=== PATIENT | female | born 1935 | race Caucasian/White ===

== ENCOUNTER → 2016-10-06 | Outpatient (REF) | payer MEDICARE, OTHER ==
[2016-10-06 15:54] LABS: ALBUMIN 3.9 GM/DL (3.2-5.2); ALBUMIN/GLOBULIN RATIO 1.56 (1.00-1.93); ALKALINE PHOSPHATASE 53 U/L (45-117); ALT/SGPT 20 U/L (12-78); ANION GAP 7 MEQ/L (8-16); AST/SGOT 19 U/L (15-37); BLOOD UREA NITROGEN 21 MG/DL (7-18); CALCIUM LEVEL 8.8 MG/DL (8.8-10.2); CARBON DIOXIDE LEVEL 32 MEQ/L (21-32); CHLORIDE LEVEL 104 MEQ/L (98-107); CHOLESTEROL LEVEL 224 MG/DL (<200); GLOMERULAR FILTRATION RATE > 60.0 (>32); GLUCOSE, FASTING 143 MG/DL (83-110); POTASSIUM SERUM 4.1 MEQ/L (3.5-5.1); SODIUM LEVEL 143 MEQ/L (136-145); TOTAL PROTEIN 6.4 GM/DL (6.4-8.2); TRIGLYCERIDES LEVEL 170 MG/DL (<150)
== END ==
LOC: M SFHCLACO 08:03
PROVIDERS: ATTEND Physician Assistant
DX: I10 Essential (primary) hypertension (principal); E78.2 Mixed hyperlipidemia; E03.9 Hypothyroidism, unspecified; E55.9 Vitamin D deficiency, unspecified; E11.9 Type 2 diabetes mellitus without complications

== ENCOUNTER → 2017-04-06 | Outpatient (REF) | payer MEDICARE, OTHER ==
[2017-04-06 15:18] LABS: ALBUMIN 3.7 GM/DL (3.2-5.2); ALBUMIN/GLOBULIN RATIO 1.48 (1.00-1.93); ALKALINE PHOSPHATASE 54 U/L (45-117); ALT/SGPT 16 U/L (12-78); ANION GAP 8 MEQ/L (8-16); AST/SGOT 19 U/L (7-37); BILIRUBIN,TOTAL 0.8 MG/DL (0.2-1.0); BLOOD UREA NITROGEN 22 MG/DL (7-18); CALCIUM LEVEL 8.5 MG/DL (8.8-10.2); CARBON DIOXIDE LEVEL 32 MEQ/L (21-32); CHLORIDE LEVEL 103 MEQ/L (98-107); CHOLESTEROL LEVEL 204 MG/DL (<200); CREATININE FOR GFR 0.94 MG/DL (0.55-1.02); GLOMERULAR FILTRATION RATE > 60.0 (>32); GLUCOSE, FASTING 210 MG/DL (83-110); POTASSIUM SERUM 4.1 MEQ/L (3.5-5.1); SODIUM LEVEL 143 MEQ/L (136-145); TOTAL PROTEIN 6.2 GM/DL (6.4-8.2); TRIGLYCERIDES LEVEL 122 MG/DL (<150)
== END ==
LOC: M SFHCLACO 09:12
PROVIDERS: ATTEND Physician Assistant
DX: I10 Essential (primary) hypertension (principal); E78.2 Mixed hyperlipidemia; E11.42 Type 2 diabetes mellitus with diabetic polyneuropathy; E03.9 Hypothyroidism, unspecified; E55.9 Vitamin D deficiency, unspecified

== ENCOUNTER 2018-12-27 16:55 | Inpatient (IN) | payer MEDICARE, OTHER ==
[~2018-12-27] VITALS: Ht 160 cm; Wt 67.0 kg
[2018-12-27] MEDS ORDERED: RAMI1CAP22 PO (17:18)
[2018-12-27] MEDS ORDERED: CYAN100050 PO (17:18)
[2018-12-27] MEDS ORDERED: VITA-157 PO (17:18)
[2018-12-27] MEDS ORDERED: VITA500045 PO (17:18)
[2018-12-27] MEDS ORDERED: SYNT25TA PO (17:18)
[2018-12-27] MEDS ORDERED: FURO40TA2 PO (17:18)
[2018-12-27] MEDS ORDERED: POTA1TAB23 PO (17:18)
[2018-12-27] MEDS ORDERED: FOLI800C PO (17:18)
[2018-12-27] MEDS ORDERED: PANT40TA3 PO (17:18)
[2018-12-27] MEDS ORDERED: BISO5TAB9 PO (17:18)
[2018-12-27] MEDS ORDERED: MAGN400C PO (17:18)
[2018-12-27] MEDS ORDERED: hydrALAZINE INJ 20 MG/ML VIAL IV ONE (17:45)
--- NOTE | 2018-12-27 17:48 | REPVR ---
EXAM: CT Head Without Contrast EXAM DATE/TIME: 12/27/2018 5:30 PM CLINICAL HISTORY: 83 years old, female; Weakness, extremity; Right; Additional info: CVA - nursing interventions must not delay CT TECHNIQUE: Imaging protocol: Computed tomography of the head without contrast. Radiation optimization: All CT scans at this facility use at least one of these dose optimization techniques: automated exposure control; mA and/or kV adjustment per patient size (includes targeted exams where dose is matched to clinical indication); or iterative reconstruction. Other technique: STROKE PROTOCOL was implemented. COMPARISON: No relevant prior studies available. FINDINGS: Brain: There is age-related volume loss. There is white matter lucency indicating chronic microvascular disease. There are small old basal ganglia lacunar infarcts. No acute infarct is identified. There is no hemorrhage or extra-axial collection. Ventricles: Ventricular size is proportionate to the prominence of the sulci. Bones/joints: Unremarkable. No acute fracture. Sinuses: There is mucosal thickening and an air-fluid level in the sphenoid sinus. Mastoid air cells: There is a small amount of fluid in the left mastoid air cells. Soft tissues: Unremarkable. IMPRESSION: 1. There is chronic microvascular disease with small old basal ganglia lacunar infarcts. 2. No acute intracranial lesion or injury. ASSESSMENT: ASPECTS ([place] Stroke Program Early CT Score) is 10 Electronically signed by: Juanpablo Cisneros On 12/27/2018 17:48:18 PM
[2018-12-27] MEDS ORDERED: FOLI0.8T PO (18:38)
[2018-12-27] MEDS ORDERED: VITA1CAP21 PO (18:38)
[2018-12-27] MEDS ORDERED: ASCO500T PO (18:38)
[2018-12-27] MEDS ORDERED: MAGN400T2 PO (18:38)
[2018-12-27] MEDS ORDERED: IBUP200C25 PO (18:41)
[2018-12-27 19:01] LABS: BASO # 0.1 10^3/uL (0.0-0.2); BASO % 0.7 % (0.0-1.0); EOS # 0.1 10^3/uL (0.0-0.5); EOS % 0.5 % (0.0-3.0); HEMATOCRIT 38.9 % (36.0-47.0); HEMOGLOBIN 13.3 g/dl (12.0-15.5); LYMPH # 2.1 10^3/uL (1.5-5.0); LYMPH % 22.9 % (24.0-44.0); MEAN CORPUSCULAR HEMOGLOBIN 31.2 pg (27.0-33.0); MEAN CORPUSCULAR HGB CONC 34.2 g/dl (32.0-36.5); MEAN CORPUSCULAR VOLUME 91.3 fl (80.0-96.0); MONO # 0.5 10^3/uL (0.0-0.8); MONO % 5.6 % (0.0-5.0); NEUTROPHILS # 6.5 10^3/uL (1.5-8.5); NEUTROPHILS % 69.3 % (36.0-66.0); PLATELET COUNT, AUTOMATED 216 10^3/uL (150-450); RED BLOOD COUNT 4.26 10^6/uL (4.00-5.40); WHITE BLOOD COUNT 9.3 10^3/uL (4.0-10.0)
[2018-12-27 19:15] LABS: INR 1.1; PROTHROMBIN TIME 13.9 SECONDS (11.8-14.0)
[2018-12-27 19:16] LABS: PARTIAL THROMBOPLASTIN TIME 28.3 SECONDS (25.0-38.4)
[2018-12-27 19:22] LABS: BLOOD UREA NITROGEN 14 MG/DL (7-18); CALCIUM LEVEL 9.2 MG/DL (8.8-10.2); CARBON DIOXIDE LEVEL 29 MEQ/L (21-32); CHLORIDE LEVEL 104 MEQ/L (98-107); CREATININE FOR GFR 0.93 MG/DL (0.55-1.30); GLOMERULAR FILTRATION RATE > 60.0 (>32); GLUCOSE, FASTING 135 MG/DL (70-100); POTASSIUM SERUM 4.1 MEQ/L (3.5-5.1); SODIUM LEVEL 139 MEQ/L (136-145)
[2018-12-27] MEDS ORDERED: ASPIRIN 325 MG TAB PO ONE (19:30)
--- NOTE | 2018-12-27 19:34 | ECGEPIP ---
[facility] - ED Test Date: 2018-12-27 Pat Name: MEET ADKINS Department: Room: - Gender: Female Senior Contract Specialist: jenny : 1935 Requested By: Tosha Gallegos Order Number: [id number] Reading MD: Tung Barahona Measurements Intervals [place] Rate: 73 P: 50 VT: 162 QRS: 51 QRSD: 88 T: 56 QT: 425 QTc: 471 Interpretive Statements SINUS RHYTHM MINIMAL ST DEPRESSION NO PRIORS FOR COMPARISON Electronically Signed on 12-27-2018 19:34:04 EDT by Tung Barahona
[2018-12-27] MEDS: HumaLOG INSULIN (NovoLOG) PER UNIT SC SCH (21:00)
--- NOTE | 2018-12-27 21:27 | REPVR ---
EXAM: MR Head Without Contrast EXAM DATE/TIME: 12/27/2018 9:20 PM CLINICAL HISTORY: 83 years old, female; Weakness, extremity; Right; Additional info: Right weak TECHNIQUE: Imaging protocol: MR of the head without contrast. COMPARISON: CT Head without contrast 12/27/2018 5:32 PM FINDINGS: Brain: There is age related volume loss. There is hyperintense signal within the periventricular white matter with multiple additional hyperintense foci scattered throughout the white matter. This is consistent with chronic microvascular disease. There are old lacunar infarcts present in the white matter, basal ganglia and left thalamus. DWI images demonstrate no evidence of acute infarct. Gradient echo images demonstrate no evidence of hemorrhage. There is no extra-axial collection. There is no mass. There are no abnormal flow voids. Ventricles: There is no hydrocephalus. Bones/joints: Unremarkable. Soft tissues: Normal. Sinuses: Normal as visualized. No acute sinusitis. Mastoid air cells: Normal as visualized. No mastoid effusion. Orbits: Unremarkable. IMPRESSION: 1. There is chronic microvascular disease with a few small old lacunar infarcts. 2. No acute intracranial lesion or injury. Electronically signed by: Juanpablo Cisneros On 12/27/2018 21:26:49 PM
--- NOTE | 2018-12-27 21:33 | REPVR ---
EXAM: MR Angiogram Head Without Contrast, Arteries EXAM DATE/TIME: 12/27/2018 9:20 PM CLINICAL HISTORY: 83 years old, female; Weakness; Additional info: Right weak TECHNIQUE: Imaging protocol: MR angiogram head without contrast. Exam focused on the arteries. 3D rendering: MIP reconstructed images were created and reviewed. COMPARISON: CT Head without contrast 12/27/2018 5:32 PM FINDINGS: Right internal carotid artery: Unremarkable. Intracranial segment is patent with no significant stenosis. No aneurysm. Right anterior cerebral artery: The A1 segment of the right anterior cerebral artery is hypoplastic. The vessels slightly dilates at the A1 A-2 junction with an infundibular appearance. No definite aneurysm. No stenosis.. Right middle cerebral artery: There is a short segment severe stenosis of the distal M1 segment of the right middle cerebral artery. Right posterior cerebral artery: There is a severe short segment stenosis of the P2 segment of the right posterior cerebral artery. No occlusion. No aneurysm. Right vertebral artery: Unremarkable. No occlusion or significant stenosis. No aneurysm. Left internal carotid artery: Unremarkable. Intracranial segment is patent with no significant stenosis. No aneurysm. Left anterior cerebral artery: The A1 segment of the left anterior cerebral artery is dominant. No stenosis. No aneurysm. Left middle cerebral artery: Unremarkable. No occlusion or significant stenosis. No aneurysm. Left posterior cerebral artery: Unremarkable. No occlusion or significant stenosis. No aneurysm. Left vertebral artery: Unremarkable. No occlusion or significant stenosis. No aneurysm. Basilar artery: Unremarkable. No occlusion or significant stenosis. No aneurysm. IMPRESSION: 1. 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 2. Severe short segment stenosis of the P2 segment of the right posterior cerebral artery. 3. No large vessel occlusion. Electronically signed by: Juanpablo Cisneros On 12/27/2018 21:33:19 PM
--- NOTE | 2018-12-27 22:05 | HPEPDOC ---
[facility] Medical History & Physical Date of Admission Dec 27, 2018 Date of Service: Dec 27, 2018 Primary Care Physician: Kena Chowdhury PA-C, LAC History and Physical TIME OF SERVICE:940PM CHIEF COMPLAINT: Disorientation and dizziness HISTORY OF PRESENT ILLNESS: This is an 83 old female who presents with complaints of lapsing and remitting disorientation, dizziness, and right leg heaviness. As a result of the leg heaviness she had a fall around 3:30 PM. She denies hitting her head is result of the fall or losing consciousness. She had difficulty getting up, but caught up on her own and walk to the house. Prior to making it inside to call her children she has to sit down and rest. Associated symptoms include slurred speech. She denies having blurry vision. She had a similar episode about 3 years ago which resolved on its own; she did not seek medical treatment after this episode. In the ED, EKG showed normal sinus rhythm, CT of the head showed an old stroke but no acute process; she was diagnosed with a TIA and received aspirin & hydralazine. She was out of the window for TPA. 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 Per chart review, unknown subtype of Congestive heart failure. Restrictive lung disease Osteoporosis. GERD Abdominal aneurysm "Leaky valves" Status post cholecystectomy. Status post cataract surgery SOCIAL HISTORY: Nonsmoker FAMILY HISTORY: Coronary artery disease Bone cancer ALLERGIES: Please see below. HOME MEDICATIONS: Please see below. PHYSICAL EXAMINATION: VITAL SIGNS: Please see below. GENERAL APPEARANCE: Well-nourished, well-developed, not in apparent distress HEENT: Normocephalic, atraumatic, mucous members moist and pink CARDIOVASCULAR: Regular rate and rhythm. No murmurs, rubs or gallops LUNGS: Clear to auscultation bilaterally on room air ABDOMEN: Positive bowel sounds, soft and nontender on palpation MUSCULOSKELETAL: Range of motion intact in all 4 extremities. Strength 5 out of 5 in all extremities except for right lower extremity where the strength is 4 out of 5 NEUROLOGICAL: Cranial nerves II-12 are intact, speech is not dysarthric PSYCHIATRIC: Alert and oriented to person base and time, able to understand and follow commands LABORATORY DATA: See below. IMAGING: CT of the head "IMPRESSION: 1. There is chronic microvascular disease with small old basal ganglia lacunar infarcts. 2. No acute intracranial lesion or injury " MRI of the brain "IMPRESSION: 1. There is chronic microvascular disease with a few small old lacunar infarcts. 2. No acute intracranial lesion or injury. " MRA of the brain "IMPRESSION: 1. 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 2. Severe short segment stenosis of the P2 segment of the right posterior cerebral artery. 3. No large vessel occlusion. " MICROBIOLOGY: Please see below. ASSESSMENT: Ms. Witt is an 83-year-old female with a past medical history of chronic hypertension, prediabetes, hypothyroidism, dyslipidemia, old basal ganglia lacunar infarct, history of PUD, unknown type of CHF, restrictive lung disease, osteoporosis, and GERD who is admitted for management of TIA PLAN: 1. TIA Primary symptom are relapsing remitting right lower extremity weakness, and dizziness. CT, MRI, and MRA of the head were negative for an acute stroke or large vessel occlusion. There was an old basal ganglia infarct present, but the patient was not aware of. Of note, she did report having similar episode in the past but did not follow-up with her physician for workup. She received aspirin, but was out of the TPA window -ABCD2 Score for risk of CVA after TIA = 7 points = high risk = hospital admission recommended Plan: admit to PCU / telemetry /fall precautions / f/u lipid panel for ACVD risk score, TSH, f/u Echo / PT/OT consult / c/w ASA, statin /neurology consult / the day time team can follow-up with the neurologist to discuss if the patient is a candidate for ASA + Plavix for 21 days followed by Plavix mono-therapy for 90 days to reduce the risk of subsequent stroke because her ABCD2 Score was greater than 4 2. Chronic hypertension Plan: Permissive hypertension for 24 hours with target blood pressure less than 220/120 / hold home BP meds until 3PM tomorrow / labetalol 5mg IV PRN if blood pressure is greater than 220/120 3. Prediabetes Plan: DM diet / Follow-up Accu-Cheks, A1c / hypoglycemia protocol / post stroke target glycemic range between 140 and 180 4. Hypothyroidism Plan: Continue home meds 5.Dyslipidemia Plan: Continue home meds 6. History of peptic ulcer disease./ GERD Plan: Continue home meds DVT prophylaxis with heparin. Disposition pending clinical course LATE ENTRY per d/w will order MRI of the lumbar spine. Vital Signs Vital Signs Date Time Temp Pulse Resp B/P (MAP) Pulse Ox O2 Delivery O2 Flow Rate FiO2 12/27/18 21:48 82 96 12/27/18 21:25 147/65 (92) 12/27/18 18:33 16 Room Air 12/27/18 16:56 98.0 Laboratory Data Labs 24H Laboratory Tests 2 12/27/18 18:50: Immature Granulocyte % (Auto) 1.0, White Blood Count 9.3, Red Blood Count 4.26, Hemoglobin 13.3, Hematocrit 38.9, Mean Corpuscular Volume 91.3, Mean Corpuscular Hemoglobin 31.2, Mean Corpuscular Hemoglobin Concent 34.2, Red Cell Distribution Width 13.2, Platelet Count 216, Neutrophils (%) (Auto) 69.3H, Lymphocytes (%) (Auto) 22.9L, Monocytes (%) (Auto) 5.6H, Eosinophils (%) (Auto) 0.5, Basophils (%) (Auto) 0.7, Neutrophils # (Auto) 6.5, Lymphocytes # (Auto) 2.1, Monocytes # (Auto) 0.5, Eosinophils # (Auto) 0.1, Basophils # (Auto) 0.1, Nucleated Red Blood Cells % (auto) 0.0, Prothrombin Time 13.9, Prothromb Time International Ratio 1.10, Activated Partial Thromboplast Time 28.3, Anion Gap 6L, Glomerular Filtration Rate > 60.0, Blood Urea Nitrogen 14, Creatinine 0.93, Sodium Level 139, Potassium Level 4.1, Chloride Level 104, Carbon Dioxide Level 29, Calcium Level 9.2 CBC/BMP Laboratory Tests 12/27/18 18:50 Red Blood Count 4.26, Mean Corpuscular Volume 91.3, Mean Corpuscular Hemoglobin 31.2, Mean Corpuscular Hemoglobin Concent 34.2, Red Cell Distribution Width 13.2, Neutrophils (%) (Auto) 69.3 H, Lymphocytes (%) (Auto) 22.9 L, Monocytes (%) (Auto) 5.6 H, Eosinophils (%) (Auto) 0.5, Basophils (%) (Auto) 0.7, Neutrophils # (Auto) 6.5, Lymphocytes # (Auto) 2.1, Monocytes # (Auto) 0.5, Eosinophils # (Auto) 0.1, Basophils # (Auto) 0.1, Calcium Level 9.2 Home Medications Scheduled Bisoprolol Fumarate (Bisoprolol Fumarate) 5 Mg Tablet, 5 MG PO DAILY Cyanocobalamin (Vitamin B-12) (Vitamin B-12) 1,000 Mcg Tablet, 1,000 MCG PO DAILY @ NOON Ergocalciferol (Vitamin D2) (Vitamin D2) 50,000 Unit Capsule, 50,000 UNITS PO 1XWK WEDNESDAY Furosemide (Furosemide) 40 Mg Tablet, 40 MG PO DAILY Levothyroxine Sodium (Synthroid) 25 Mcg Tablet, 25 MCG PO DAILY Magnesium Oxide (Magnesium Oxide) 400 Mg Tablet, 400 MG PO DAILY Potassium Chloride (Potassium Chloride) 10 Meq Tablet.er, 10 MEQ PO QPM Ramipril (Ramipril) 2.5 Mg Capsule, 2.5 MG PO DAILY Vitamin A Palmitate (Vitamin A) 10,000 Unit Capsule, 10,000 UNIT PO DAILY Vitamin E (Dl,Tocopheryl Acet) (Vitamin E) 400 Unit Capsule, 400 UNIT PO DAILY Scheduled PRN Ibuprofen (Ibuprofen) 200 Mg Capsule, 400 MG PO Q8H PRN for PAIN Pantoprazole Sodium (Pantoprazole Sodium) 40 Mg Tablet.dr, 40 MG PO DAILY PRN for HEARTBURN Allergies Coded Allergies: No Known Allergies (Unverified , 12/27/18) A-FIB/CHADSVASC A-FIB History Current/History of A-Fib/PAF?: No Current PO Anticoag Therapy: No CHASIDY NAIK MD Dec 27, 2018 22:05
[2018-12-27] MEDS ORDERED: LABETALOL HCL 100 MG/20 ML VIAL IV PRN (23:30)
[2018-12-27] MEDS ORDERED: GLUCOSE 4 GM CHEW TABLET PO PRN (23:30)
[2018-12-27] MEDS ORDERED: PANTOPRAZOLE 40MG TAB (PROTONIX) PO PRN (23:30)
[2018-12-27] MEDS ORDERED: DEXTROSE 50% 50 ML SYRINGE IV PRN (23:30)
[2018-12-27] MEDS ORDERED: GLUCAGON FOR INJ 1 MG VIAL (J1610) SC PRN (23:30)
[2018-12-28 00:40] VITALS: BP 140/72
[2018-12-28 00:44] LABS: HEMOGLOBIN A1c 7.2 %
[2018-12-28] MEDS: POTASSIUM CHLORIDE 10 MEQ SR TABLET PO SCH ×2 (01:04→17:18)
[2018-12-28] MEDS ORDERED: SLF 3 ML SYR IV PRN (02:15)
[2018-12-28 04:00] VITALS: BP 132/72
[2018-12-28] MEDS: LEVOTHYROXINE 25MCG TABLET (0.025MG) PO SCH (05:21)
[2018-12-28] MEDS: HEPARIN SOD (PORCINE) 5000 UNITS/ML VIAL SC SCH ×3 (05:21→17:17)
[2018-12-28] MEDS: SLF 3 ML SYR IV SCH ×3 (05:22→21:14)
[2018-12-28 05:37] LABS: HEMATOCRIT 34.6 % (36.0-47.0); HEMOGLOBIN 11.7 g/dl (12.0-15.5); MEAN CORPUSCULAR HGB CONC 33.8 g/dl (32.0-36.5); MEAN CORPUSCULAR VOLUME 88.7 fl (80.0-96.0); PLATELET COUNT, AUTOMATED 211 10^3/uL (150-450)
[2018-12-28 06:10] LABS: BLOOD UREA NITROGEN 13 MG/DL (7-18); CALCIUM LEVEL 8.5 MG/DL (8.8-10.2); CARBON DIOXIDE LEVEL 28 MEQ/L (21-32); CHLORIDE LEVEL 105 MEQ/L (98-107); CHOLESTEROL LEVEL 167 MG/DL (<200); CHOLESTEROL RISK RATIO 4.394 (<5); CREATININE FOR GFR 0.79 MG/DL (0.55-1.30); GLOMERULAR FILTRATION RATE > 60.0 (>32); GLUCOSE, FASTING 148 MG/DL (70-100); HDL CHOLESTEROL 38 MG/DL (>40); LDL CHOLESTEROL 105 MG/DL (<100); NON-HDL-C 129 MG/DL; POTASSIUM SERUM 3.5 MEQ/L (3.5-5.1); SODIUM LEVEL 140 MEQ/L (136-145); TRIGLYCERIDES LEVEL 121 MG/DL (<150)
[2018-12-28] MEDS: HumaLOG INSULIN (NovoLOG) PER UNIT SC SCH ×4 (07:30→20:34)
[2018-12-28 08:00] VITALS: BP 150/62
[2018-12-28] MEDS: ASPIRIN 81 MG ENTERIC TAB PO SCH (08:12)
[2018-12-28] MEDS: ATORVASTATIN 20 MG TAB PO SCH (08:12)
[2018-12-28] MEDS: MAGNESIUM OXIDE 400 MG TAB (MAG-OX) PO SCH (08:12)
--- NOTE | 2018-12-28 11:01 | REP ---
MRI of the lumbar spine without contrast Indication: Right leg weakness. Comparison: CT abdomen pelvis of 06/02/2012. Technique: MRI of the lumbar spine was performed utilizing sagittal STIR, T1 and T2, and axial T1 and T2 weighted imaging. No intravenous contrast was administered. Findings: There is exaggeration of lumbar lordosis. There is compression deformity of the inferior endplate of L1 with greater than 50% loss of height anteriorly and 3 mm retrolisthesis of L1 on L2. There is mild L1 inferior endplate edema and mild T1 and T2 hypointensity suggestive of L1 inferior endplate sclerosis. There is superior endplate deformities along L4 and L5 which may be related to Schmorl's nodes. There is a 6 mm T1 and T2 hypointensity along the superior endplate of L1 and a sub 5 mm hypointensity within the L2 vertebral body which are incompletely evaluated and incompletely characterized. Vertebral body heights and intervertebral disc heights are maintained. The visualized spinal cord is normal. The conus medullaris terminates at the level of L1-L2. There is partial fatty atrophy of the posterior paraspinal muscles. Note is made of bilateral parapelvic renal cysts, as before. 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 Level specific observations: L1-L2: Retrolisthesis. Diffuse disc bulge, eccentric to the right. Severe right and mild left neural foraminal narrowing. L2-L3: Diffuse disc bulge. Bilateral neural foraminal narrowing. L3-L4: Diffuse disc bulge. Bilateral facet arthropathy. Ligamentum flavum thickening. Severe spinal canal stenosis. Right greater than left neural foraminal narrowing. L4-L5: Diffuse disc bulge. Bilateral facet arthropathy. Ligamentum flavum thickening. Left greater right neural foraminal narrowing. L5-S1: Unremarkable. Impression: 1. Compression deformity of the L1 inferior endplate with greater than 50% loss of height and 3 mm retrolisthesis of L1 on L2. Endplate marrow changes suggestive of mild edema and sclerosis, likely subacute to chronic. 2. Multilevel lumbar spondylosis, worse at L L3-L4 with severe spinal canal stenosis and right greater than left neural foraminal narrowing. 3. Additionally, there is severe right and mild left neural foraminal narrowing L1-L2 left greater than right neural foraminal narrowing at L4-L5. 4. Indeterminate subcentimeter hypointensities within the L1 and L2 vertebral bodies. Electronically Signed by Marifer Stallings MD 12/28/2018 10:52 A
[2018-12-28 12:00] VITALS: BP 146/65
--- NOTE | 2018-12-28 15:11 | IPNPDOC ---
Text Note Date of Service The patient was seen on 12/28/18. NOTE SUBJECTIVE: Ms. Witt is an 83-year-old female admitted with concern for stroke. She had had an episode of disorientation, dizziness and right leg heaviness. She is currently sitting upright fully awake, alert and conversant. She has no complaints of pain, weakness, or any other discomfort. She is about to work with physical therapy. Her appetite is good. OBJECTIVE: HENT: Neck is fully supple, she has no adenopathy or thyromegaly, oral mucosa is moist. Cardiovascular: Regular rate and rhythm, no appreciable murmur. Respiratory: Clear to auscultation. Abdomen: Soft, nontender, nondistended, moderate central obesity, bowel tones are present. Extremities: No peripheral edema or lesions, pedal pulses palpable. Back: No focal vertebral spine tenderness. Neuro: Cranial nerves II through XII are grossly intact to function, speech is intact and intelligible, patient does not demonstrate tremor or ataxia with any movement, she has full truncal control ASSESSMENT/PLAN: 1. TIA. Symptoms appear to be attributed to TIA as they have since resolved. There are no findings of acute stroke on head CT or MRI. Note was made of an old basal ganglia infarct lesion. She does not appear to have any significant residual deficits. Patient is complaining evaluation by therapy services. She is receiving appropriate therapy with aspirin and statins. 2. Spinal stenosis. This is noted to her MRI of the lumbar spine. There is also multilevel spondylosis. Patient does not exhibit radicular symptoms. She does not have much discomfort; she states that she has back pain on occasion if she stands for too long. It is relieved by sitting for a few minutes. 3. Essential hypertension. Systolic blood pressures are noted to have ranged 132-158 over the course of today. She has remained clinically stable. VS,Fishbone, I+O VS, Fishbone, I+O Laboratory Tests 12/27/18 18:50 Red Blood Count 4.26, Mean Corpuscular Volume 91.3, Mean Corpuscular Hemoglobin 31.2, Mean Corpuscular Hemoglobin Concent 34.2, Red Cell Distribution Width 13.2, Neutrophils (%) (Auto) 69.3 H, Lymphocytes (%) (Auto) 22.9 L, Monocytes (%) (Auto) 5.6 H, Eosinophils (%) (Auto) 0.5, Basophils (%) (Auto) 0.7, Neutrophils # (Auto) 6.5, Lymphocytes # (Auto) 2.1, Monocytes # (Auto) 0.5, Eosinophils # (Auto) 0.1, Basophils # (Auto) 0.1, Calcium Level 9.2 12/28/18 05:22 Red Blood Count 3.90 L, Mean Corpuscular Volume 88.7, Mean Corpuscular Hemoglob in 30.0, Mean Corpuscular Hemoglobin Concent 33.8, Red Cell Distribution Width 13.3 Vital Signs Date Time Temp Pulse Resp B/P (MAP) Pulse Ox O2 Delivery O2 Flow Rate FiO2 12/28/18 12:00 97.6 54 18 146/65 (92) 98 12/27/18 18:33 Room Air I&O- Last 24 Hours up to 6 AM 12/28/18 06:00 Intake Total 0 ml Output Total 0 ml Balance 0 ml ELIDA STEPHENSON MD Dec 28, 2018 15:11
[2018-12-28 16:00] VITALS: BP 150/64
[2018-12-28 20:00] VITALS: BP 160/76
[2018-12-29] VITALS: BP 130/62
[2018-12-29 04:00] VITALS: BP 130/68
[2018-12-29] MEDS: HEPARIN SOD (PORCINE) 5000 UNITS/ML VIAL SC SCH ×2 (05:22→14:00)
[2018-12-29] MEDS: LEVOTHYROXINE 25MCG TABLET (0.025MG) PO SCH (05:22)
[2018-12-29] MEDS: SLF 3 ML SYR IV SCH ×2 (05:23→14:00)
[2018-12-29] MEDS: HumaLOG INSULIN (NovoLOG) PER UNIT SC SCH ×2 (07:30→12:00)
[2018-12-29 08:00] VITALS: BP 155/70
--- NOTE | 2018-12-29 08:09 | ECHO ---
DATE OF PROCEDURE: 12/28/2018 REFERRING PHYSICIAN: Dr. Leilani Lloyd. REASON FOR THE ECHOCARDIOGRAM: Cerebral vascular accident (CVA). 2D MEASUREMENT: IVS - 0.96 cm LV - 4.2 cm LVPW - 1.1 cm LA - 4.1 cm Aorta - 3.3 cm IVC - 2.2 cm DOPPLER MEASUREMENT: Peak velocity across the aortic valve - 1.7 m/s Peak velocity across the LVOT - 1.2 m/s Peak gradient across the aortic valve - 12 mmHg. Mean gradient across the aortic valve - 7 mmHg. Mitral E - 1.44, Mitral A - 1.11 with a ratio of 1.3. Maximum tricuspid valve velocity - 3.4 m/s. 2D COMMENTS: 1. Normal left ventricular size, wall thickness, and normal global left ventricular systolic function. The estimated ventricular systolic ejection fraction is 65-70%. 2. Mildly enlarged left atrium. The right atrium subjectively appeared to be mildly enlarged. Normal right ventricle. 3. The atrial septum appeared to be normal without evidence of defect or shunt. 4. Normal aortic root. 5. No pericardial effusion seen. 6. Mildly calcified aortic valve with normal leaflet excursion. Mildly calcified mitral annulus with normal anterior mitral valve leaflet motion. Normal tricuspid valve. The pulmonic valve and proximal pulmonary artery branches were not well visualized. 7. The inferior vena cava was mildly enlarged, central venous pressure might be elevated. DOPPLER: It detects mild aortic radiation, mild mitral regurgitation, and moderate tricuspid regurgitation. The calculated pulmonary artery systolic pressure varies between 40-50 mmHg. Abnormal relaxation pattern was noted across the mitral valve annulus consistent with a pseudo normal pattern, left ventricular end-diastolic pressure might be elevated. IMPRESSION: 1. Normal global left ventricular systolic function. There is some features of left ventricular diastolic dysfunction, grade 2, left ventricle end-diastolic pressure might be elevated. 2. Aortic valve sclerosis with mild aortic radiation and trivial aortic stenosis. 3. Mitral annulus calcification with mildly enlarged left atrium and mild mitral regurgitation. 4. Moderate tricuspid radiation with moderate pulmonary hypertension and dilated right atrium. 5. There are features of elevated central venous pressure, the inferior vena cava was mildly enlarged. 6. No intracardiac shunt detected in this transthoracic echocardiogram. MTDD
[2018-12-29] MEDS: ATORVASTATIN 20 MG TAB PO SCH (08:10)
[2018-12-29] MEDS: MAGNESIUM OXIDE 400 MG TAB (MAG-OX) PO SCH (08:10)
[2018-12-29] MEDS: ASPIRIN 81 MG ENTERIC TAB PO SCH (08:10)
--- NOTE | 2018-12-29 09:40 | CR ---
DATE OF CONSULTATION: 12/29/2018 REFERRING PROVIDER: Dr. Lloyd REASON FOR CONSULTATION: Suspected stroke. HISTORY OF PRESENTING ILLNESS: The patient is an 83-year-old female who presented to [facility] with weakness of the right leg. The patient states that she was pulling up weeds out of the ground. She was bent over, stood up and started to develop vertigo. She lost her balance and fell. The patient tried to get up and felt weakness. The patient was brought to [facility]. MRI of the brain was completed, which was negative for any acute stroke. The patient was complaining of low back pain. She has had longstanding low back pain. She has a foot drop on the right leg, which is chronic she states. She has had weakness in both legs for quite some time. The patient ambulates with an antalgic gait usually. The patient had an MRI of the lumbosacral spine, which showed severe stenosis and right and left neural foraminal severe narrowing, retrolisthesis of L1-L2, severe spinal canal stenosis at L3-4, right greater than left. She had stenosis at L4-5 left greater than right at the neuroforamen. The patient had MR angiogram evidence of severe stenosis of the distal M1 segment of the right MCA artery and the right [employer] P2 segment showing severe stenosis. Based on severe intracranial stenosis, the patient should be started on Plavix 75 mg daily in addition to aspirin 81 mg daily and should be discharged on both. Both medication should be continued indefinitely unless there is any other contraindication for the combination therapy. The patient at the present time does not have any focal neurologic deficits other than the right leg being weak, particularly at the iliopsoas bilaterally and distal right tibialis anterior. Deep tendon reflexes are absent at the patellas and Achilles, and 1+ in the upper extremities. REVIEW OF SYSTEMS: 14-point review of systems obtained and is negative except as per HPI. ALLERGIES: NO KNOWN DRUG ALLERGIES. SOCIAL HISTORY: The patient denies use of any alcohol, tobacco or illicit drugs. PAST MEDICAL HISTORY: Hypertension, prediabetes, hypothyroidism, dyslipidemia. 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 PAST SURGICAL HISTORY: Cholecystectomy, cataract surgery. SOCIAL HISTORY: The patient is nonsmoker. FAMILY HISTORY: Noncontributory. MEDICATIONS: - bisoprolol - cyanocobalamin - vitamin D - furosemide - levothyroxine - magnesium oxide - potassium chloride - ramipril - vitamin A - vitamin E PHYSICAL EXAMINATION: Blood pressure is 150/64, pulse rate 74, respiratory rate is 18, temperature is 97.5 degrees Fahrenheit, oxygenation 97% on room air. The patient is awake, alert, oriented to person, place and time. Speech, language, comprehension, and repetition are intact. Pupils are 2.5 mm round, reactive to light. Extraocular movements intact in all directions without nystagmus. Sensation: V1, V2, V3 intact light touch. No facial asymmetry with activation. Palate elevates symmetrically. Tongue is midline. No weakness of sternocleidomastoids bilaterally. Hearing is subjectively equal to finger rub. There is no pronator drift. The patient has reasonable strength in bilateral biceps, triceps, 4+ strength in bilateral deltoids from prior shoulder trauma, hand movie operator are 5/5, iliopsoas are 5-, quadriceps 5/5, tibialis anterior on the right is 4+ and 5 on the left. Sensory is intact to light touch in all four extremities. Deep tendon reflexes are absent at the lower extremities with absent Babinski signs. Upper extremities are 2s. Gait deferred. ASSESSMENT: 83-year-old female with transient episode of vertigo occurring upon standing from a bending position, likely positional with incidental findings of severe intracranial stenosis of the right M1 and right P2 intracranial arteries. The patient also has severe neural foraminal narrowing at multiple levels of the lumbar spine with severe canal stenosis likely contributing towards the low back pain and right leg weakness.. There is no MRI evidence of an acute stroke to suggest a cause of vertigo or right leg weakness which is still present on exam. PLAN: For high-grade intracranial stenosis, continue aspirin 81 mg daily. Start Plavix 75 mg by mouth daily. Continue statin therapy. Recommend physical therapy (PT)/occupational therapy (OT) evaluation, outpatient orthopedic spine surgical consultation for lumbar spinal disease. She can have a VNG study arranged as an out patient. The patient should followup in the [facility] in 4-6 weeks post discharge. History obtained from both the patient and the patient's daughter. FERNANDA
[2018-12-29 12:00] VITALS: BP 129/60
[2018-12-29] MEDS ORDERED: ATOR1TAB21 PO (14:32)
[2018-12-29] MEDS ORDERED: ASPI81TAEC PO (14:32)
[2018-12-29] MEDS ORDERED: CLOP75TA2 PO (14:36)
--- NOTE | 2019-01-24 23:14 | DS.PDOC ---
Discharge Summary General Date of Admission Dec 27, 2018 at 22:14 Date of Discharge December 29, 2018 Primary Care Physician: Kena Chowdhury PA-C [facility] Specialist/Consultants Involve: MELISSA RIOS MD Discharge Summary PROCEDURES PERFORMED DURING STAY: [Echocardiogram.]. ADMITTING DIAGNOSES: 1. [Acute CVA]. DISCHARGE DIAGNOSES: 1. [Acute CVA; essential hypertension, dyslipidemia, hypothyroidism, peptic ulcer disease, GERD, restrictive lung disease, spinal stenosis ]. COMPLICATIONS/CHIEF COMPLAINT: TIA. HISTORY OF PRESENT ILLNESS/HOSPITAL COURSE: [83 year old female with RLE weakness and slurred speech sustained fall at home. Was eventually able to get to a phone to call for assistance. Upon eval in the ER she was not found to have an acute stroke: note was made of an old infarct lesion on head CT. Echocardiogram showed ejection fraction 65 - 70% with grade II diastolic dysfunction. The patient's weakness and slurred speech was short lived; they had essentially resolved by the time she was seen by physical therapy. She was found to have significant spinal stenosis and was going to need further follow up for that. Otherwise she was cleared for discharge to home.]. DISCHARGE MEDICATIONS: Please see below. ALLERGIES: Please see below. PHYSICAL EXAMINATION ON DISCHARGE: HENT: Neck is fully supple, she has no adenopathy or thyromegaly, oral mucosa is moist. Cardiovascular: Regular rate and rhythm, no appreciable murmur. Respiratory: Clear to auscultation. Abdomen: Soft, nontender, nondistended, moderate central obesity, bowel tones are present. Extremities: No peripheral edema or lesions, pedal pulses palpable. Back: No focal vertebral spine tenderness. Neuro: Cranial nerves II through XII are grossly intact to function, speech is intact and intelligible, patient does not demonstrate tremor or ataxia with any movement, she has full truncal control LABORATORY DATA: Please see below. IMAGING: Brain MRI [1. There is chronic microvascular disease with a few small old lacunar infarcts. 2. No acute intracranial lesion or injury. Electronically signed by: Juanpbalo Cisneros On 12/27/2018 21:26:49 PM ] Lumbar MRI Impression: 1. Compression deformity of the L1 inferior endplate with greater than 50% loss of height and 3 mm retrolisthesis of L1 on L2. Endplate marrow changes suggestive of mild edema and sclerosis, likely subacute to chronic. 2. Multilevel lumbar spondylosis, worse at L L3-L4 with severe spinal canal stenosis and right greater than left neural foraminal narrowing. 3. Additionally, there is severe right and mild left neural foraminal narrowing L1-L2 left greater than right neural foraminal narrowing at L4-L5. 4. Indeterminate subcentimeter hypointensities within the L1 and L2 vertebral bodies. Electronically Signed by Marifer Stallings MD 12/28/2018 10:52 A PROGNOSIS: ACTIVITY: [As tolerated]. DIET: [As tolerated] DISCHARGE PLAN: [Patient was stable for discharge to home. She is to follow up with her PCP Kena Chowdhury in 1 week, then with Neurology service in 4 - 6 weeks.] DISPOSITION: Home, Self-Care. DISCHARGE CONDITION: [Stable]. TIME SPENT ON DISCHARGE: Greater than [40] minutes. Discharge Medications Scheduled Aspirin (Aspirin EC) 81 Mg Tablet.dr, 81 MG PO DAILY Atorvastatin Calcium (Atorvastatin Calcium) 20 Mg Tablet, 40 MG PO DAILY Bisoprolol Fumarate (Bisoprolol Fumarate) 5 Mg Tablet, 5 MG PO DAILY, (Reported) Clopidogrel Bisulfate (Clopidogrel) 75 Mg Tablet, 1 TAB PO DAILY Cyanocobalamin (Vitamin B-12) (Vitamin B-12) 1,000 Mcg Tablet, 1,000 MCG PO DAILY, (Reported) @ NOON Ergocalciferol (Vitamin D2) (Vitamin D2) 50,000 Unit Capsule, 50,000 UNITS PO 1XWK, (Reported) WEDNESDAY Furosemide (Furosemide) 40 Mg Tablet, 40 MG PO DAILY, (Reported) Levothyroxine Sodium (Synthroid) 25 Mcg Tablet, 25 MCG PO DAILY, (Reported) Magnesium Oxide (Magnesium Oxide) 400 Mg Tablet, 400 MG PO DAILY, (Reported) Potassium Chloride (Potassium Chloride) 10 Meq Tablet.er, 10 MEQ PO QPM, (Repor katelyn) Ramipril (Ramipril) 2.5 Mg Capsule, 2.5 MG PO DAILY, (Reported) Vitamin A Palmitate (Vitamin A) 10,000 Unit Capsule, 10,000 UNIT PO DAILY, (Reported) Vitamin E (Dl,Tocopheryl Acet) (Vitamin E) 400 Unit Capsule, 400 UNIT PO DAILY, (Reported) Scheduled PRN Ibuprofen (Ibuprofen) 200 Mg Capsule, 400 MG PO Q8H PRN for PAIN, (Reported) Pantoprazole Sodium (Pantoprazole Sodium) 40 Mg Tablet.dr, 40 MG PO DAILY PRN for HEARTBURN, (Reported) Allergies Coded Allergies: No Known Allergies (Unverified , 12/27/18) ELIDA STEPHENSON MD Jan 24, 2019 23:14
== END 2018-12-29 16:22 | disposition home or self-care (01) | DRG 149 ==
LOC: M ED 16:55 → M ED INP 22:14 → M PCU 12-28 00:40
PROVIDERS: ADMIT Internal Medicine; ATTEND Internal Medicine
DX: H81.10 Benign paroxysmal vertigo, unspecified ear (principal); I11.0 Hypertensive heart disease with heart failure; R73.03 Prediabetes; E03.9 Hypothyroidism, unspecified; E78.5 Hyperlipidemia, unspecified; I50.9 Heart failure, unspecified; I66.01 Occlusion and stenosis of right middle cerebral artery; I66.21 Occlusion and stenosis of right posterior cerebral artery; J98.4 Other disorders of lung; I67.2 Cerebral atherosclerosis; M81.0 Age-related osteoporosis without current pathological fracture; M48.061 Spinal stenosis, lumbar region without neurogenic claudication; M21.371 Foot drop, right foot; R26.89 Other abnormalities of gait and mobility; K21.9 Gastro-esophageal reflux disease without esophagitis; I71.4 Abdominal aortic aneurysm, without rupture; Z90.49 Acquired absence of other specified parts of digestive tract; Z98.49 Cataract extraction status, unspecified eye; Z86.73 Personal history of transient ischemic attack (TIA), and cerebral infarction without residual deficits; Z79.899 Other long term (current) drug therapy

== ENCOUNTER 2019-07-01 11:16 | Emergency (ER) | payer MEDICARE, OTHER ==
[~2019-07-01] VITALS: Ht 154.9 cm; Wt 76.9 kg
[~2019-07-01 11:16] MED LIST: ASCO500T PO; ASPI81TAEC PO; ATOR1TAB21 PO; BISO5TAB14 PO; CLOP75TA2 PO; CYAN100050 PO; FOLI0.8T PO; FOLI800C PO; FURO40TA2 PO; IBUP200C25 PO; MAGN400C PO; MAGN400T2 PO; PANT40TA3 PO; POTA1TAB23 PO; RAMI1CAP22 PO; SYNT25TA PO; VITA-157 PO; VITA1CAP21 PO; VITA500045 PO
[2019-07-01] MEDS ORDERED: hydrALAZINE INJ 20 MG/ML VIAL IV ONE (13:30)
[2019-07-01 14:03] VITALS: BP 191/79
[2019-07-01 14:08] LABS: BASO # 0.1 10^3/uL (0.0-0.2); BASO % 0.8 % (0.0-1.0); EOS % 0.1 % (0.0-3.0); HEMATOCRIT 40.2 % (36.0-47.0); HEMOGLOBIN 13.6 g/dl (12.0-15.5); LYMPH # 1.4 10^3/uL (1.5-5.0); LYMPH % 19.1 % (24.0-44.0); MEAN CORPUSCULAR HEMOGLOBIN 30.6 pg (27.0-33.0); MEAN CORPUSCULAR HGB CONC 33.8 g/dl (32.0-36.5); MEAN CORPUSCULAR VOLUME 90.3 fl (80.0-96.0); MONO # 0.4 10^3/uL (0.0-0.8); NEUTROPHILS # 5.4 10^3/uL (1.5-8.5); NEUTROPHILS % 73.5 % (36.0-66.0); PLATELET COUNT, AUTOMATED 197 10^3/uL (150-450); RED BLOOD COUNT 4.45 10^6/uL (4.00-5.40); WHITE BLOOD COUNT 7.3 10^3/uL (4.0-10.0)
[2019-07-01 14:43] LABS: ALBUMIN 3.7 GM/DL (3.2-5.2); ALT/SGPT 14 U/L (12-78); BILIRUBIN,DIRECT 0.2 MG/DL (0.0-0.2); BILIRUBIN,TOTAL 0.9 MG/DL (0.2-1.0); BLOOD UREA NITROGEN 18 MG/DL (7-18); CALCIUM LEVEL 8.9 MG/DL (8.8-10.2); CARBON DIOXIDE LEVEL 28 MEQ/L (21-32); CHLORIDE LEVEL 106 MEQ/L (98-107); CK-MB VALUE MASS 1.2 NG/ML (<3.6); CPK CREATINE PHOSPHOKINASE 145 U/L (26-192); CREATININE FOR GFR 0.78 MG/DL (0.55-1.30); FREE T4 0.84 NG/DL (0.76-1.46); GLOMERULAR FILTRATION RATE > 60.0 (>32); GLUCOSE, FASTING 131 MG/DL (70-100); MB/CK RELATIVE INDEX 0.83 (< OR =4); POTASSIUM SERUM 4.1 MEQ/L (3.5-5.1); SODIUM LEVEL 141 MEQ/L (136-145); TOTAL PROTEIN 6.5 GM/DL (6.4-8.2); TROPONIN I < 0.02 NG/ML (< 0.10)
--- NOTE | 2019-07-01 15:09 | REP ---
REASON FOR EXAM: Stroke-like symptoms. COMPARISON: 12/27/2018 The ventricles and sulci are unchanged. There is no change in the deep cerebral white matter. There is no evidence of an acute intracranial hemorrhagic or nonhemorrhagic event. There are no extra-axial fluid collections. There is no shift of the midline structures. There is no significant change in appearance of the posterior fossa. The skull is unchanged. The imaged paranasal sinuses and mastoid air cells are essentially unchanged. IMPRESSION: No change. No evidence of acute disease. Stable appearing chronic changes. Unreviewed
--- NOTE | 2019-07-01 15:13 | REP ---
REASON FOR EXAM: Trauma. There are no priors for comparison. There is degenerative disc space narrowing seen at every level. There is a 2 mm anterolisthesis of C3 on C4. There is anterior and posterior osteophytic ridging at every level, particularly C5-6 and C6-7. The facet joints are well aligned bilaterally. Degenerative facet and uncovertebral joint changes are present at every level bilaterally. There is no evidence of an acute fracture. There is no abnormal paraspinal soft tissue swelling. IMPRESSION: Chronic changes. There is no evidence of an acute fracture. Unreviewed
--- NOTE | 2019-07-01 15:30 | REP ---
REASON: Dizziness. COMPARISON: Multiple, the latest 06/04/2013. There is global cardiomegaly, status quo. There is interstitial fibrotic change with basilar predominance, status quo. There is no change in the osseous structures. IMPRESSION: Stable appearing chronic changes. Unreviewed
[2019-07-01] MEDS ORDERED: ISOVUE-370 76% 100ML VIAL (Q9967) As Ordered ONE (15:33)
[2019-07-01 15:34] LABS: INR 1.02; PROTHROMBIN TIME 13.1 SECONDS (11.8-14.0)
[2019-07-01] MEDS ORDERED: ONDANSETRON 4MG/2ML VIAL (J2405) As Ordered ONE (16:15)
[2019-07-01 16:19] VITALS: BP 193/83
[2019-07-01] MEDS ORDERED: ONDANSETRON 4MG/2ML VIAL (J2405) IV ONE (16:30)
--- NOTE | 2019-07-01 16:31 | REPVR ---
PROCEDURE INFORMATION: Exam: CT Angiography Head With Contrast Exam date and time: 07/01/2019 3:44 PM Age: 84 years old Clinical indication: Other: CVA TECHNIQUE: Imaging protocol: Computed tomography angiography of the head with intravenous contrast. 3D rendering: MIP and/or 3D reconstructed images were created by the technologist. Radiation optimization: All CT scans at this facility use at least one of these dose optimization techniques: automated exposure control; mA and/or kV adjustment per patient size (includes targeted exams where dose is matched to clinical indication); or iterative reconstruction. Contrast material: ISOVUE 370; Contrast volume: 100 ml; Contrast route: IV; COMPARISON: CT Head without contrast 07/01/2019 3:03 PM FINDINGS: Right internal carotid artery: Calcified plaque in the supraclinoid segment of the right internal carotid artery resulting in mild stenosis. No hemodynamically significant stenosis. No aneurysm. Right anterior cerebral artery: No occlusion or hemodynamically significant stenosis. No aneurysm. Right middle cerebral artery: Occlusion of the distal M1 segment of the right MCA with distal reconstitution of some M2 and more distal branches. Right posterior cerebral artery: No occlusion or hemodynamically significant stenosis. No aneurysm. Right vertebral artery: No occlusion or hemodynamically significant stenosis. No aneurysm. Left internal carotid artery: Calcified plaque in the supraclinoid segment of the left internal carotid artery resulting in mild stenosis. No hemodynamically significant stenosis. No aneurysm. Left anterior cerebral artery: No occlusion or hemodynamically significant stenosis. No aneurysm. Left middle cerebral artery: No occlusion or hemodynamically significant stenosis. No aneurysm. Left posterior cerebral artery: No occlusion or hemodynamically significant stenosis. No aneurysm. Left vertebral artery: Moderate stenosis in the V4 segment of the left vertebral artery. No occlusion. No aneurysm. Basilar artery: No occlusion or hemodynamically significant stenosis. No aneurysm. HEAD: Brain: Decreased ramirez-white matter differentiation in the right insular ribbon. No visible acute intracranial hemorrhage. IMPRESSION: 1. Acute ischemic changes in the right MCA distribution. 2. Occlusion of the distal M1 segment of the right MCA with some distal reconstitution. 3. Moderate stenosis in the V4 segment of the left vertebral artery. Electronically signed by: Milad Briggs On 07/01/2019 16:31:43 PM
--- NOTE | 2019-07-01 16:32 | REPVR ---
PROCEDURE INFORMATION: Exam: CT Angiography Neck With Contrast Exam date and time: 07/01/2019 3:44 PM Age: 84 years old Clinical indication: Other: CVA TECHNIQUE: Imaging protocol: Computed tomography angiography of the neck with intravenous contrast. 3D rendering: MIP and/or 3D reconstructed images were created by the technologist. Radiation optimization: All CT scans at this facility use at least one of these dose optimization techniques: automated exposure control; mA and/or kV adjustment per patient size (includes targeted exams where dose is matched to clinical indication); or iterative reconstruction. Contrast material: ISOVUE 370; Contrast volume: 100 ml; Contrast route: IV; COMPARISON: CT Spine,cervical w/o contrast 07/01/2019 11:41:53 AM FINDINGS: VASCULATURE: Right common carotid artery: No significant stenosis. No dissection or occlusion. Right internal carotid artery: Mild (less than 50%) stenosis of the proximal right internal carotid artery. No hemodynamically significant stenosis, dissection, or occlusion. Right external carotid artery: No occlusion or significant stenosis. Right vertebral artery: No significant stenosis. No dissection or occlusion. Left common carotid artery: No significant stenosis. No dissection or occlusion. Left internal carotid artery: Mild (less than 50%) stenosis of the proximal left internal carotid artery. No hemodynamically significant stenosis, dissection, or occlusion. Left external carotid artery: No occlusion or significant stenosis. Left vertebral artery: No significant stenosis. No dissection or occlusion. NECK: Bones/joints: No acute fracture. Degenerative changes in the spine. Soft tissues: Normal. IMPRESSION: No dissection, hemodynamically significant stenosis, or occlusion in the carotid or vertebral arteries. COMMENTS: Using NASCET method for measuring degree of carotid artery stenosis: Mild is less than 50% stenosis. Moderate is 50-69% stenosis. Severe is 70-94% stenosis. Near occlusion is 95-99% stenosis. Electronically signed by: Milad Briggs On 07/01/2019 16:32:09 PM
--- NOTE | 2019-07-01 17:27 | ECGEPIP ---
[facility] - ED Test Date: 2019-07-01 Pat Name: MEET ADKINS Department: Room: - Gender: Female [employer]: TC : 1935 Requested By: WILLIAMS Ward Order Number: [id number] Reading MD: Sonny Arroyo Measurements Intervals [place] Rate: 47 P: 89 CA: 151 QRS: 35 QRSD: 92 T: 21 QT: 491 QTc: 437 Interpretive Statements SINUS BRADYCARDIA Nonspecific ST-T wave abnormalities Rate decreased from tracing done 12-27-18 Electronically Signed on 07-01-2019 17:26:56 EDT by Sonny Arroyo
--- NOTE | 2019-07-02 10:44 | REP ---
REASON: Change in mental status since 11:44 a.m. today when the patient obtained a brain CT. There is no change since 11:44 a.m. There is no CT evidence of an acute intracranial hemorrhagic or nonhemorrhagic event. There are deep cerebral white matter ischemic changes, status quo. There is an old lacunar infarct in the left thalamic region, status quo. No acute shift of the midline structures. No acute extra-axial fluid collections. No skull fracture. No change in the paranasal sinuses. IMPRESSION: No change. No evidence of acute disease. Unreviewed
== END 2019-07-01 16:25 | disposition short-term general hospital (02) ==
LOC: M ED 11:16
DX: I63.311 Cerebral infarction due to thrombosis of right middle cerebral artery (principal); R29.810 Facial weakness; R00.1 Bradycardia, unspecified; I10 Essential (primary) hypertension; R73.03 Prediabetes; E07.9 Disorder of thyroid, unspecified; M85.80 Other specified disorders of bone density and structure, unspecified site; I71.4 Abdominal aortic aneurysm, without rupture; I73.9 Peripheral vascular disease, unspecified; J98.4 Other disorders of lung; E78.5 Hyperlipidemia, unspecified; Z86.73 Personal history of transient ischemic attack (TIA), and cerebral infarction without residual deficits; Z79.899 Other long term (current) drug therapy; Z79.84 Long term (current) use of oral hypoglycemic drugs; Z79.02 Long term (current) use of antithrombotics/antiplatelets
CPT/HCPCS: 36415; 70450; 70496; 70498; 71046; 72125; 80048; 80076; 82550; 82553; 84439; 84443; 84484; 85025; 85610; 85730; 93005; 93041; 94760; 96374; 96375; 99291; J2405; Q9967

== ENCOUNTER → 2022-03-23 | Outpatient (REF) | payer MEDICARE, OTHER ==
[~2022-03-23] MED LIST changes: +ACET1TAB55 PO; +ASPI-569 PO; +ASPI81TA26 PO; -ASPI81TAEC PO; +CARA1TAB6 PO; +DILT180C70 PO; +DULC10SU2 PR; +ELIQ5TAB PO; -FOLI0.8T PO; +FOLI800T3 PO; +LEVO88TA3 PO; +MELA3TAB30 PO; +METO100T5 PO; +MILKSUS3 PO; +MIRA3350 PO; +PANT40TA29 PO; -PANT40TA3 PO; +PATIENT COMMENT; +PROT1TAB2 PO; -VITA-157 PO; +VITAE40CA PO
[2022-03-23 06:44] LABS: HEMOGLOBIN 8.8 g/dl (12.0-15.5); MEAN CORPUSCULAR HEMOGLOBIN 30.9 pg (27.0-33.0); MEAN CORPUSCULAR HGB CONC 32.6 g/dl (32.0-36.5); MEAN CORPUSCULAR VOLUME 94.7 fl (80.0-96.0); PLATELET COUNT, AUTOMATED 125 10^3/uL (150-450); RED BLOOD COUNT 2.85 10^6/uL (4.00-5.40); WHITE BLOOD COUNT 9.3 10^3/uL (4.0-10.0)
[2022-03-23 06:57] LABS: ALBUMIN 2.6 G/DL (3.2-5.2); BILIRUBIN,TOTAL 0.9 MG/DL (0.3-1.2); CALCIUM LEVEL 8.6 MG/DL (8.3-10.6); CHOLESTEROL RISK RATIO 2.94 (<5); GLOMERULAR FILTRATION RATE 55.7 (>32); HDL CHOLESTEROL 27.8 MG/DL (>40); LDL CHOLESTEROL 33.6 MG/DL (<100); POTASSIUM SERUM 4.2 MMOL/L (3.5-5.1); TOTAL PROTEIN 4.8 G/DL (5.7-8.2)
[2022-03-23 07:22] LABS: HEMOGLOBIN A1c 6.3 % (4.0-6.0)
== END ==
LOC: SKLAB5 14:41
PROVIDERS: ATTEND Nurse Practitioner Family
DX: I67.9 Cerebrovascular disease, unspecified (principal); E11.9 Type 2 diabetes mellitus without complications

== ENCOUNTER → 2022-03-24 | Outpatient (REF) | payer MEDICARE, OTHER ==
[2022-03-24 09:49] LABS: APPEARANCE, URINE MANUAL HAZY (CLEAR)
[2022-03-24 09:50] LABS: COLOR, URINE MANUAL YELLOW (YELLOW)
[2022-03-24 09:57] LABS: SPECIFIC GRAVITY,URINE MANUAL 1.015 (1.002-1.035)
[2022-03-24 09:58] LABS: BILIRUBIN, URINE MANUAL NEGATIVE (NEGATIVE); BLOOD URINE MANUAL POSITIVE (NEGATIVE); GLUCOSE, URINE (UA) MANUAL NEGATIVE (NEGATIVE); KETONE, URINE MANUAL NEGATIVE (NEGATIVE); LEUKOCYTE ESTERASE, URINE MAN POSITIVE (NEGATIVE); NITRITE, URINE MANUAL POSITIVE (NEGATIVE); PROTEIN, URINE MANUAL 1+ mg/dL (NEGATIVE); UROBILINOGEN, URINE MANUAL NORMAL (NORMAL)
[2022-03-24 10:59] LABS: BACTERIA, URINE LARGE AMOUNT; HYALINE CAST, URINE NONE SEEN /lpf (0-1); SQUAMOUS EPITHELIAL CELL URINE LARGE AMOUNT /hpf (SMALL AMT); WBC, URINE TNTC /hpf (0-3)
[2022-03-24 11:00] LABS: URIC ACID CRYSTALS, URINE MOD AMOUNT /hpf
== END ==
LOC: SKLAB5 07:00
PROVIDERS: ATTEND Nurse Practitioner Family
DX: I63.9 Cerebral infarction, unspecified (principal); E11.9 Type 2 diabetes mellitus without complications

== ENCOUNTER 2022-03-26 13:31 | Inpatient (IN) | payer MEDICARE, OTHER ==
[~2022-03-26] VITALS: Ht 157.5 cm; Wt 67.9 kg
[~2022-03-26 13:31] MED LIST changes: -ACET1TAB55 PO; -ASPI81TA26 PO; -CARA1TAB6 PO; -DILT180C70 PO; -DULC10SU2 PR; -ELIQ5TAB PO; -LEVO88TA3 PO; -MELA3TAB30 PO; -METO100T5 PO; -MILKSUS3 PO; -MIRA3350 PO; -PATIENT COMMENT; -PROT1TAB2 PO
[2022-03-26] MEDS ORDERED: MELA3TAB30 PO (13:55)
[2022-03-26] MEDS ORDERED: METO100T5 PO (13:55)
[2022-03-26] MEDS ORDERED: MIRA3350 PO (13:55)
[2022-03-26] MEDS ORDERED: ASPI81TA26 PO (13:55)
[2022-03-26] MEDS ORDERED: DILT180C70 PO (13:55)
[2022-03-26] MEDS ORDERED: LEVO88TA3 PO (13:55)
[2022-03-26] MEDS ORDERED: ELIQ5TAB PO (13:55)
[2022-03-26] MEDS ORDERED: ATOR1TAB21 PO (13:55)
[2022-03-26] MEDS ORDERED: MILKSUS3 PO (13:58)
[2022-03-26] MEDS ORDERED: ACET1TAB55 PO (13:58)
[2022-03-26] MEDS ORDERED: DULC10SU2 PR (13:58)
[2022-03-26] MEDS ORDERED: PANTOPRAZOLE 40MG VIAL IV ONE (14:05)
[2022-03-26] MEDS ORDERED: PATIENT COMMENT (14:11)
[2022-03-26] MEDS ORDERED: HOME MED LIST COMPLETE! XX SCH (14:15)
[2022-03-26 14:47] LABS: VENOUS BASE EXCESS -4.4 (-2.0-2.0); VENOUS HCO3 20.7 MEQ/L (23.0-27.0); VENOUS O2 SATURATION 93.8 % (60.0-80.0); VENOUS PARTIAL PRESSURE O2 76.3 mmHg (30.0-50.0); VENOUS PH 7.354 UNITS (7.330-7.430); VENOUS STANDARD HCO3 20.7 MEQ/L; VENOUS TOTAL CO2 21.9 MEQ/L (24.0-28.0)
[2022-03-26 14:48] LABS: BASO # 0.1 10^3/uL (0.0-0.2); BASO % 0.4 % (0.0-1.0); EOS # 0.1 10^3/uL (0.0-0.5); EOS % 0.4 % (0.0-3.0); HEMATOCRIT 23.2 % (36.0-47.0); HEMOGLOBIN 7.1 g/dl (12.0-15.5); LYMPH % 17.1 % (24.0-44.0); MEAN CORPUSCULAR HEMOGLOBIN 30.3 pg (27.0-33.0); MEAN CORPUSCULAR HGB CONC 30.6 g/dl (32.0-36.5); MEAN CORPUSCULAR VOLUME 99.1 fl (80.0-96.0); MONO # 0.6 10^3/uL (0.0-0.8); MONO % 4.7 % (2.0-8.0); NEUTROPHILS # 8.8 10^3/uL (1.5-8.5); NEUTROPHILS % 75.4 % (36.0-66.0); PLATELET COUNT, AUTOMATED 270 10^3/uL (150-450); RED BLOOD COUNT 2.34 10^6/uL (4.00-5.40); WHITE BLOOD COUNT 11.7 10^3/uL (4.0-10.0)
[2022-03-26 15:11] LABS: INR 1.93; PROTHROMBIN TIME 22.4 SECONDS (12.5-14.5)
[2022-03-26 15:27] LABS: ALBUMIN 3.1 G/DL (3.2-5.2); BILIRUBIN,DIRECT 0.3 MG/DL (<0.4); BILIRUBIN,TOTAL 0.7 MG/DL (0.3-1.2); CALCIUM LEVEL 8.8 MG/DL (8.3-10.6); CREATININE FOR GFR 1.02 MG/DL (0.55-1.30); GLOMERULAR FILTRATION RATE 54.4 (>32); TOTAL PROTEIN 5.8 G/DL (5.7-8.2)
[2022-03-26 15:29] LABS: THYROID STIMULATING HORMONE 3.051 uIU/ML (0.55-4.78)
[2022-03-26] MEDS ORDERED: NS 500 ML IV ONE (15:40)
[2022-03-26 15:46] LABS: RSV AMPLIFICATION NEGATIVE (NEGATIVE)
[2022-03-26] MEDS ORDERED: DEXTROSE 50% 50 ML SYRINGE IV PRN (15:55)
[2022-03-26] MEDS ORDERED: GLUCAGON INJ 1MG VIAL SC PRN (15:55)
[2022-03-26] MEDS ORDERED: NS 1,000 ML IV ONE (15:55)
[2022-03-26] MEDS ORDERED: GLUCOSE 4GM CHEW TABLET PO PRN (15:55)
[2022-03-26] MEDS: cefTRIAXone SOD 1 GM in D5W MINI-BAG PLUS 50 ML IV SCH (16:17)
[2022-03-26 17:12] VITALS: BP 111/70
[2022-03-26 17:28] VITALS: BP 121/73
[2022-03-26 18:27] VITALS: BP 120/76
[2022-03-26 18:49] VITALS: BP 115/73
[2022-03-26] MEDS ORDERED: ACETAMINOPHEN 325 MG TAB PO PRN (19:10)
[2022-03-26] MEDS ORDERED: BISACODYL 10 MG SUPP PR PRN (19:10)
[2022-03-26 20:37] LABS: HEMATOCRIT 24.3 % (36.0-47.0); HEMOGLOBIN 7.7 g/dl (12.0-15.5)
[2022-03-26] MEDS: METOPROLOL TARTRATE 100MG TAB PO SCH (21:11)
[2022-03-26] MEDS: PANTOPRAZOLE 40MG VIAL IV SCH (21:11)
[2022-03-26 22:30] VITALS: BP 102/65
[2022-03-27] VITALS (10 sets, daily range): BP systolic 103–168; BP diastolic 66–90
[2022-03-27 06:34] LABS: BASO # 0.1 10^3/uL (0.0-0.2); EOS # 0.2 10^3/uL (0.0-0.5); EOS % 1.8 % (0.0-3.0); HEMATOCRIT 25.6 % (36.0-47.0); HEMOGLOBIN 8.2 g/dl (12.0-15.5); LYMPH # 1.9 10^3/uL (1.5-5.0); LYMPH % 22.7 % (24.0-44.0); MEAN CORPUSCULAR VOLUME 93.8 fl (80.0-96.0); MONO # 0.5 10^3/uL (0.0-0.8); MONO % 6.6 % (2.0-8.0); NEUTROPHILS # 5.4 10^3/uL (1.5-8.5); NEUTROPHILS % 65.8 % (36.0-66.0); PLATELET COUNT, AUTOMATED 177 10^3/uL (150-450); RED BLOOD COUNT 2.73 10^6/uL (4.00-5.40); WHITE BLOOD COUNT 8.2 10^3/uL (4.0-10.0)
[2022-03-27 07:05] LABS: BLOOD UREA NITROGEN 28 MG/DL (9-23); CALCIUM LEVEL 7.7 MG/DL (8.3-10.6); CARBON DIOXIDE LEVEL 23 MMOL/L (20-31); CHLORIDE LEVEL 109 MMOL/L (98-107); CREATININE FOR GFR 0.88 MG/DL (0.55-1.30); GLOMERULAR FILTRATION RATE > 60.0 (>32); GLUCOSE, FASTING 129 MG/DL (74-106); POTASSIUM SERUM 4.1 MMOL/L (3.5-5.1); SODIUM LEVEL 139 MMOL/L (136-145)
[2022-03-27 07:26] LABS: HEPATITIS B SURFACE ANTIGEN NEGATIVE (NEGATIVE)
[2022-03-27 07:45] LABS: HEPATITIS C VIRUS ABY INDEX 0.1 INDEX (<0.8)
[2022-03-27 07:46] LABS: HEPATITIS B CORE ANTIBODY IGM NEGATIVE (NEGATIVE)
[2022-03-27] MEDS ORDERED: MOM 30ML SUSPENSION UDC PO ONE (08:00)
[2022-03-27] MEDS: METOPROLOL TARTRATE 100MG TAB PO SCH ×2 (09:00→21:28)
[2022-03-27] MEDS: ATORVASTATIN 20 MG TAB PO SCH (09:08)
[2022-03-27] MEDS: PANTOPRAZOLE 40MG VIAL IV SCH ×2 (09:08→21:28)
[2022-03-27] MEDS: LEVOTHYROXINE 88MCG TABLET (0.088 MG) PO SCH (09:08)
[2022-03-27] MEDS: POTASSIUM CHLORIDE 10MEQ SR TABLET PO SCH (09:08)
[2022-03-27 09:34] LABS: HEMATOCRIT 28.5 % (36.0-47.0); HEMOGLOBIN 9.1 g/dl (12.0-15.5)
[2022-03-27] MEDS: POLYETHYLENE GLYCOL (MIRALAX) 238GM BOTTLE PO ONE ×2 (13:04→17:52)
[2022-03-27 14:42] LABS: HEMATOCRIT 31.7 % (36.0-47.0)
[2022-03-27] MEDS ORDERED: NITROGLYCERIN 2% OINT 1 GM *U/D* PKT TOP ONE (14:50)
[2022-03-27] MEDS: cefTRIAXone SOD 1 GM in D5W MINI-BAG PLUS 50 ML IV SCH (17:53)
[2022-03-27] MEDS ORDERED: POLYETHYLENE GLYCOL (MIRALAX) 238GM BOTTLE PO ONE (18:00)
[2022-03-27 22:08] LABS: HEMATOCRIT 27.7 % (36.0-47.0); HEMOGLOBIN 9.1 g/dl (12.0-15.5)
[2022-03-28 03:35] LABS: HEMATOCRIT 25.6 % (36.0-47.0); HEMOGLOBIN 8.4 g/dl (12.0-15.5)
[2022-03-28 05:44] VITALS: BP 119/68
[2022-03-28 06:42] LABS: BASO # 0.1 10^3/uL (0.0-0.2); BASO % 0.9 % (0.0-1.0); EOS # 0.3 10^3/uL (0.0-0.5); EOS % 3.8 % (0.0-3.0); HEMATOCRIT 26.3 % (36.0-47.0); HEMOGLOBIN 8.6 g/dl (12.0-15.5); LYMPH # 1.9 10^3/uL (1.5-5.0); MEAN CORPUSCULAR HEMOGLOBIN 30.6 pg (27.0-33.0); MEAN CORPUSCULAR HGB CONC 32.7 g/dl (32.0-36.5); MEAN CORPUSCULAR VOLUME 93.6 fl (80.0-96.0); MONO # 0.5 10^3/uL (0.0-0.8); MONO % 6.4 % (2.0-8.0); NEUTROPHILS # 4.7 10^3/uL (1.5-8.5); NEUTROPHILS % 62.4 % (36.0-66.0); PLATELET COUNT, AUTOMATED 195 10^3/uL (150-450); RED BLOOD COUNT 2.81 10^6/uL (4.00-5.40); WHITE BLOOD COUNT 7.6 10^3/uL (4.0-10.0)
[2022-03-28 07:15] LABS: BLOOD UREA NITROGEN 17 MG/DL (9-23); CARBON DIOXIDE LEVEL 21 MMOL/L (20-31); CHLORIDE LEVEL 107 MMOL/L (98-107); CREATININE FOR GFR 0.78 MG/DL (0.55-1.30); GLOMERULAR FILTRATION RATE > 60.0 (>32); GLUCOSE, FASTING 127 MG/DL (74-106); POTASSIUM SERUM 3.8 MMOL/L (3.5-5.1); SODIUM LEVEL 138 MMOL/L (136-145)
[2022-03-28] MEDS: METOPROLOL TARTRATE 100MG TAB PO SCH ×2 (09:00→20:05)
[2022-03-28] MEDS: PANTOPRAZOLE 40MG VIAL IV SCH ×2 (09:09→21:39)
[2022-03-28] MEDS: POTASSIUM CHLORIDE 10MEQ SR TABLET PO SCH (09:10)
[2022-03-28] MEDS: ATORVASTATIN 20 MG TAB PO SCH (09:12)
[2022-03-28] MEDS: LEVOTHYROXINE 88MCG TABLET (0.088 MG) PO SCH (09:13)
[2022-03-28] MEDS ORDERED: MOM 30ML SUSPENSION UDC PO ONE (10:00)
[2022-03-28 12:08] LABS: ANTINUCLEAR ANTIBODIES DIRECT Negative (Negative)
[2022-03-28] MEDS ORDERED: LIDOCAINE 2% 100MG/5ML SDV (FOR ANES.) As Ordered ONE (16:54)
[2022-03-28] MEDS ORDERED: propofoL 500 MG/50 ML VIAL As Ordered ONE (16:54)
[2022-03-28] MEDS ORDERED: MIDAZOLAM INJ 2MG/2ML VIAL (J2250 PER 1MG) As Ordered ONE (16:55)
[2022-03-28] MEDS ORDERED: fentaNYL 100 MCG/2 ML INJECTION As Ordered ONE (16:55)
[2022-03-28] MEDS ORDERED: LR 1,000 ML IV SCH (17:20)
[2022-03-28] MEDS ORDERED: ONDANSETRON 4MG 2ML VIAL IV PRN (17:20)
[2022-03-28] MEDS: cefTRIAXone SOD 1 GM in D5W MINI-BAG PLUS 50 ML IV SCH (19:26)
[2022-03-28 19:30] VITALS: BP 120/76
[2022-03-29 06:00] VITALS: BP 114/76
[2022-03-29 06:23] LABS: BASO # 0.1 10^3/uL (0.0-0.2); BASO % 0.9 % (0.0-1.0); EOS # 0.3 10^3/uL (0.0-0.5); EOS % 5.2 % (0.0-3.0); HEMATOCRIT 28.2 % (36.0-47.0); LYMPH # 1.4 10^3/uL (1.5-5.0); LYMPH % 22.8 % (24.0-44.0); MEAN CORPUSCULAR HEMOGLOBIN 30.1 pg (27.0-33.0); MEAN CORPUSCULAR HGB CONC 31.9 g/dl (32.0-36.5); MEAN CORPUSCULAR VOLUME 94.3 fl (80.0-96.0); MONO # 0.5 10^3/uL (0.0-0.8); MONO % 7.1 % (2.0-8.0); NEUTROPHILS % 62.6 % (36.0-66.0); PLATELET COUNT, AUTOMATED 216 10^3/uL (150-450); RED BLOOD COUNT 2.99 10^6/uL (4.00-5.40); WHITE BLOOD COUNT 6.3 10^3/uL (4.0-10.0)
[2022-03-29 06:43] LABS: BLOOD UREA NITROGEN 12 MG/DL (9-23); CALCIUM LEVEL 7.8 MG/DL (8.3-10.6); CARBON DIOXIDE LEVEL 22 MMOL/L (20-31); CHLORIDE LEVEL 108 MMOL/L (98-107); CREATININE FOR GFR 0.84 MG/DL (0.55-1.30); GLOMERULAR FILTRATION RATE > 60.0 (>32); GLUCOSE, FASTING 115 MG/DL (74-106); POTASSIUM SERUM 3.9 MMOL/L (3.5-5.1); SODIUM LEVEL 140 MMOL/L (136-145)
[2022-03-29] MEDS ORDERED: NS 500 ML IV ONE (09:00)
[2022-03-29] MEDS ORDERED: DIGOXIN 0.125 MG TAB PO STA (09:01)
[2022-03-29] MEDS: PANTOPRAZOLE 40MG VIAL IV SCH (09:10)
[2022-03-29] MEDS: POTASSIUM CHLORIDE 10MEQ SR TABLET PO SCH (09:11)
[2022-03-29] MEDS: ATORVASTATIN 20 MG TAB PO SCH (09:11)
[2022-03-29] MEDS: MIDODRINE 5 MG TAB PO SCH ×4 (09:11→17:46)
[2022-03-29] MEDS: METOPROLOL TARTRATE 100MG TAB PO SCH ×2 (09:12→21:00)
[2022-03-29] MEDS: LEVOTHYROXINE 88MCG TABLET (0.088 MG) PO SCH (09:18)
[2022-03-29] MEDS ORDERED: METOPROLOL 5 MG/5 ML VIAL IV SCH (09:40)
[2022-03-29] MEDS ORDERED: DIGOXIN INJ 0.5 MG/2 ML AMP IV ONE ×2 (10:00→16:00)
[2022-03-29 10:58] VITALS: BP 133/90
[2022-03-29 15:00] VITALS: BP 103/53
[2022-03-29] MEDS ORDERED: CARA1TAB6 PO (19:28)
[2022-03-29] MEDS ORDERED: PROT1TAB2 PO (19:28)
[2022-03-29 20:20] VITALS: BP 115/57
[2022-03-30 05:13] VITALS: BP 114/55
[2022-03-30 06:35] LABS: BASO # 0.1 10^3/uL (0.0-0.2); EOS # 0.3 10^3/uL (0.0-0.5); EOS % 5.1 % (0.0-3.0); HEMATOCRIT 28.9 % (36.0-47.0); HEMOGLOBIN 9.3 g/dl (12.0-15.5); LYMPH # 1.3 10^3/uL (1.5-5.0); LYMPH % 22.1 % (24.0-44.0); MEAN CORPUSCULAR HEMOGLOBIN 30.7 pg (27.0-33.0); MEAN CORPUSCULAR HGB CONC 32.2 g/dl (32.0-36.5); MEAN CORPUSCULAR VOLUME 95.4 fl (80.0-96.0); MONO # 0.4 10^3/uL (0.0-0.8); MONO % 6.6 % (2.0-8.0); NEUTROPHILS # 3.8 10^3/uL (1.5-8.5); NEUTROPHILS % 63.9 % (36.0-66.0); PLATELET COUNT, AUTOMATED 225 10^3/uL (150-450); RED BLOOD COUNT 3.03 10^6/uL (4.00-5.40); WHITE BLOOD COUNT 5.9 10^3/uL (4.0-10.0)
[2022-03-30 07:03] LABS: DIGOXIN LEVEL 0.7 NG/ML (0.8-2.0)
[2022-03-30 07:17] LABS: BLOOD UREA NITROGEN 10 MG/DL (9-23); CALCIUM LEVEL 7.8 MG/DL (8.3-10.6); CARBON DIOXIDE LEVEL 23 MMOL/L (20-31); CHLORIDE LEVEL 106 MMOL/L (98-107); CREATININE FOR GFR 0.88 MG/DL (0.55-1.30); GLOMERULAR FILTRATION RATE > 60.0 (>32); GLUCOSE, FASTING 125 MG/DL (74-106); POTASSIUM SERUM 4.3 MMOL/L (3.5-5.1); SODIUM LEVEL 139 MMOL/L (136-145)
[2022-03-30] MEDS ORDERED: SUCRALFATE 1 GM TAB PO SCH (08:00)
[2022-03-30] MEDS: LEVOTHYROXINE 88MCG TABLET (0.088 MG) PO SCH (08:24)
[2022-03-30] MEDS: POTASSIUM CHLORIDE 10MEQ SR TABLET PO SCH (08:24)
[2022-03-30 08:25] VITALS: BP 113/55
[2022-03-30] MEDS: ATORVASTATIN 20 MG TAB PO SCH (08:25)
[2022-03-30] MEDS: METOPROLOL TARTRATE 100MG TAB PO SCH (08:26)
[2022-03-30] MEDS: MIDODRINE 5 MG TAB PO SCH (08:26)
[2022-03-30] MEDS ORDERED: PANTOPRAZOLE 40MG TAB (PROTONIX) PO SCH (09:00)
== END 2022-03-30 10:06 | DRG 813 ==
LOC: M ED 13:31 → EDBD 13:31 → M ED INP 15:52 → ENRESERV 21:13 → M MSPAV 22:20
PROVIDERS: ADMIT General Practice; ATTEND General Practice
PROC: 30233N1 Transfusion of Nonautologous Red Blood Cells into Peripheral Vein, Percutaneous Approach (ICD-10-PCS; 2022-03-26)
PROC: 0DJD8ZZ Inspection of Lower Intestinal Tract, Via Natural or Artificial Opening Endoscopic (ICD-10-PCS; 2022-03-28)
PROC: 0DB78ZX Excision of Stomach, Pylorus, Via Natural or Artificial Opening Endoscopic, Diagnostic (ICD-10-PCS; principal; 2022-03-28 10:30)
DX: D68.32 Hemorrhagic disorder due to extrinsic circulating anticoagulants (principal); I50.32 Chronic diastolic (congestive) heart failure; D62 Acute posthemorrhagic anemia; I48.20 Chronic atrial fibrillation, unspecified; K92.2 Gastrointestinal hemorrhage, unspecified; N39.0 Urinary tract infection, site not specified; E87.20 Acidosis, unspecified; I95.89 Other hypotension; R73.03 Prediabetes; Z66 Do not resuscitate; E03.9 Hypothyroidism, unspecified; K25.9 Gastric ulcer, unspecified as acute or chronic, without hemorrhage or perforation; K64.4 Residual hemorrhoidal skin tags; E78.5 Hyperlipidemia, unspecified; B96.20 Unspecified Escherichia coli [E. coli] as the cause of diseases classified elsewhere; M81.0 Age-related osteoporosis without current pathological fracture; K21.9 Gastro-esophageal reflux disease without esophagitis; T45.515A Adverse effect of anticoagulants, initial encounter; I27.20 Pulmonary hypertension, unspecified; I08.1 Rheumatic disorders of both mitral and tricuspid valves; K57.30 Diverticulosis of large intestine without perforation or abscess without bleeding; J98.4 Other disorders of lung; Z86.73 Personal history of transient ischemic attack (TIA), and cerebral infarction without residual deficits; Z90.49 Acquired absence of other specified parts of digestive tract; Z98.49 Cataract extraction status, unspecified eye; Z79.01 Long term (current) use of anticoagulants; Z79.82 Long term (current) use of aspirin; Z79.890 Hormone replacement therapy; Z79.899 Other long term (current) drug therapy

== ENCOUNTER → 2022-03-26 | Outpatient (REF) | payer MEDICARE, OTHER ==
[2022-03-26 12:29] LABS: HEMATOCRIT 23.7 % (36.0-47.0); HEMOGLOBIN 7.4 g/dl (12.0-15.5); MEAN CORPUSCULAR HGB CONC 31.2 g/dl (32.0-36.5); MEAN CORPUSCULAR VOLUME 99.2 fl (80.0-96.0); PLATELET COUNT, AUTOMATED 258 10^3/uL (150-450); RED BLOOD COUNT 2.39 10^6/uL (4.00-5.40); WHITE BLOOD COUNT 12.4 10^3/uL (4.0-10.0)
== END ==
LOC: SKLAB5 11:38
PROVIDERS: ATTEND Nurse Practitioner Family
DX: R53.83 Other fatigue (principal)

== ENCOUNTER → 2022-04-02 | Outpatient (REF) | payer MEDICARE, OTHER ==
[~2022-04-02] MED LIST changes: +ACET1TAB55 PO; +ASPI81TA26 PO; +CARA1TAB6 PO; +DILT180C70 PO; +DULC10SU2 PR; +ELIQ5TAB PO; +LEVO88TA3 PO; +MELA3TAB30 PO; +METO100T5 PO; +MILKSUS3 PO; +MIRA3350 PO; +PATIENT COMMENT; +PROT1TAB2 PO
[2022-04-02 09:33] LABS: HEMATOCRIT 33.5 % (36.0-47.0); HEMOGLOBIN 10.4 g/dl (12.0-15.5); MEAN CORPUSCULAR HEMOGLOBIN 29.7 pg (27.0-33.0); MEAN CORPUSCULAR VOLUME 95.7 fl (80.0-96.0); PLATELET COUNT, AUTOMATED 263 10^3/uL (150-450); WHITE BLOOD COUNT 6.5 10^3/uL (4.0-10.0)
== END ==
LOC: SKLAB5 09:46
PROVIDERS: ATTEND Nurse Practitioner Family
DX: E11.9 Type 2 diabetes mellitus without complications (principal)

== ENCOUNTER → 2022-04-06 | Outpatient (REF) | payer MEDICARE, OTHER ==
[~2022-04-06] MED LIST changes: +CARD240C5 PO; +CINN500C15 PO; +ELIQ2.5T PO; +FERR1TAB8 PO; +LANTINJ4 SC; +PANT-23 PO; +SUCR1TAB56 PO
[2022-04-06 08:14] LABS: HEMATOCRIT 33.7 % (36.0-47.0); HEMOGLOBIN 10.6 g/dl (12.0-15.5); MEAN CORPUSCULAR HEMOGLOBIN 29.9 pg (27.0-33.0); MEAN CORPUSCULAR HGB CONC 31.5 g/dl (32.0-36.5); MEAN CORPUSCULAR VOLUME 95.2 fl (80.0-96.0); PLATELET COUNT, AUTOMATED 253 10^3/uL (150-450); RED BLOOD COUNT 3.54 10^6/uL (4.00-5.40); WHITE BLOOD COUNT 6.8 10^3/uL (4.0-10.0)
== END ==
LOC: SKLAB5 07:32
PROVIDERS: ATTEND Nurse Practitioner Family
DX: E11.22 Type 2 diabetes mellitus with diabetic chronic kidney disease (principal); N18.9 Chronic kidney disease, unspecified

== ENCOUNTER → 2022-04-09 | Outpatient (REF) | payer MEDICARE, OTHER ==
[~2022-04-09] MED LIST changes: -CARD240C5 PO; -CINN500C15 PO; -ELIQ2.5T PO; -FERR1TAB8 PO; -LANTINJ4 SC; -PANT-23 PO; -SUCR1TAB56 PO
[2022-04-09 08:40] LABS: HEMATOCRIT 32.1 % (36.0-47.0); HEMOGLOBIN 9.7 g/dl (12.0-15.5); MEAN CORPUSCULAR HEMOGLOBIN 30.4 pg (27.0-33.0); MEAN CORPUSCULAR HGB CONC 30.2 g/dl (32.0-36.5); MEAN CORPUSCULAR VOLUME 100.6 fl (80.0-96.0); PLATELET COUNT, AUTOMATED 145 10^3/uL (150-450); RED BLOOD COUNT 3.19 10^6/uL (4.00-5.40)
== END ==
LOC: SKLAB5 09:50
PROVIDERS: ATTEND Nurse Practitioner Family
DX: D64.9 Anemia, unspecified (principal)

== ENCOUNTER → 2022-04-13 | Outpatient (REF) | payer MEDICARE, OTHER ==
[~2022-04-13] MED LIST changes: +CARD240C5 PO; +CINN500C15 PO; +ELIQ2.5T PO; +FERR1TAB8 PO; +LANTINJ4 SC; +PANT-23 PO; +SUCR1TAB56 PO
[2022-04-13 12:58] LABS: HEMATOCRIT 33.5 % (36.0-47.0); HEMOGLOBIN 10.3 g/dl (12.0-15.5); MEAN CORPUSCULAR HEMOGLOBIN 29.8 pg (27.0-33.0); MEAN CORPUSCULAR HGB CONC 30.7 g/dl (32.0-36.5); MEAN CORPUSCULAR VOLUME 96.8 fl (80.0-96.0); PLATELET COUNT, AUTOMATED 220 10^3/uL (150-450); RED BLOOD COUNT 3.46 10^6/uL (4.00-5.40); WHITE BLOOD COUNT 5.2 10^3/uL (4.0-10.0)
== END ==
LOC: SKLAB5 10:06
PROVIDERS: ATTEND Nurse Practitioner Family
DX: D64.9 Anemia, unspecified (principal)

== ENCOUNTER → 2022-04-16 | Outpatient (REF) | payer MEDICARE, OTHER ==
[2022-04-16 15:06] LABS: HEMOGLOBIN 11.7 g/dl (12.0-15.5); MEAN CORPUSCULAR HEMOGLOBIN 29.8 pg (27.0-33.0); MEAN CORPUSCULAR HGB CONC 30.8 g/dl (32.0-36.5); MEAN CORPUSCULAR VOLUME 96.9 fl (80.0-96.0); PLATELET COUNT, AUTOMATED 274 10^3/uL (150-450); RED BLOOD COUNT 3.92 10^6/uL (4.00-5.40); WHITE BLOOD COUNT 6.1 10^3/uL (4.0-10.0)
== END ==
LOC: SKLAB5 07:00
PROVIDERS: ATTEND Nurse Practitioner Family
DX: K92.2 Gastrointestinal hemorrhage, unspecified (principal)

== ENCOUNTER → 2022-04-19 | Outpatient (REF) ==
[~2022-04-19] MED LIST changes: -CARD240C5 PO; -CINN500C15 PO; -ELIQ2.5T PO; -FERR1TAB8 PO; -LANTINJ4 SC; -PANT-23 PO; -SUCR1TAB56 PO
[2022-04-19 13:10] LABS: HEMATOCRIT 37.5 % (36.0-47.0); HEMOGLOBIN 11.6 g/dl (12.0-15.5); MEAN CORPUSCULAR HEMOGLOBIN 29.7 pg (27.0-33.0); MEAN CORPUSCULAR HGB CONC 30.9 g/dl (32.0-36.5); MEAN CORPUSCULAR VOLUME 96.2 fl (80.0-96.0); PLATELET COUNT, AUTOMATED 261 10^3/uL (150-450); WHITE BLOOD COUNT 5.8 10^3/uL (4.0-10.0)
[2022-04-19 13:42] LABS: BLOOD UREA NITROGEN 12 MG/DL (9-23); CARBON DIOXIDE LEVEL 27 MMOL/L (20-31); CHLORIDE LEVEL 104 MMOL/L (98-107); CREATININE FOR GFR 0.81 MG/DL (0.55-1.30); GLOMERULAR FILTRATION RATE > 60.0 (>32); GLUCOSE, FASTING 174 MG/DL (74-106); POTASSIUM SERUM 4.2 MMOL/L (3.5-5.1); SODIUM LEVEL 139 MMOL/L (136-145)
== END ==
LOC: SKLAB5 08:45
PROVIDERS: ATTEND Internal Medicine
DX: R60.9 Edema, unspecified (principal)

== ENCOUNTER 2022-05-28 18:19 | Inpatient (IN) | payer MEDICARE, OTHER ==
[~2022-05-28] VITALS: Ht 157.5 cm; Wt 68.9 kg
[2022-05-28] MEDS ORDERED: ELIQ2.5T PO (18:36)
[2022-05-28] MEDS ORDERED: NS 500 ML IV ONE (19:40)
[2022-05-28] MEDS ORDERED: PANT-23 PO (20:04)
[2022-05-28] MEDS ORDERED: CINN500C15 PO (20:04)
[2022-05-28] MEDS ORDERED: SUCR1TAB56 PO (20:04)
[2022-05-28] MEDS ORDERED: FERR1TAB8 PO (20:04)
[2022-05-28] MEDS ORDERED: FURO40TA2 PO (20:04)
[2022-05-28] MEDS ORDERED: HOME MED LIST COMPLETE! XX SCH (20:10)
[2022-05-28 20:18] LABS: BASO # 0.1 10^3/uL (0.0-0.2); BASO % 1.1 % (0.0-1.0); EOS # 0.1 10^3/uL (0.0-0.5); EOS % 1.2 % (0.0-3.0); HEMATOCRIT 40.2 % (36.0-47.0); HEMOGLOBIN 13.1 g/dl (12.0-15.5); LYMPH # 1.9 10^3/uL (1.5-5.0); LYMPH % 25.7 % (24.0-44.0); MEAN CORPUSCULAR HEMOGLOBIN 29.4 pg (27.0-33.0); MEAN CORPUSCULAR HGB CONC 32.6 g/dl (32.0-36.5); MEAN CORPUSCULAR VOLUME 90.3 fl (80.0-96.0); MONO # 0.5 10^3/uL (0.0-0.8); MONO % 6.8 % (2.0-8.0); NEUTROPHILS # 4.8 10^3/uL (1.5-8.5); NEUTROPHILS % 64.8 % (36.0-66.0); PLATELET COUNT, AUTOMATED 184 10^3/uL (150-450); RED BLOOD COUNT 4.45 10^6/uL (4.00-5.40); WHITE BLOOD COUNT 7.3 10^3/uL (4.0-10.0)
[2022-05-28 20:24] LABS: LIPASE 49 U/L (12-53)
[2022-05-28 20:25] LABS: CK-MB VALUE MASS < 1.0 NG/ML (<3.6)
[2022-05-28 20:28] LABS: VENOUS BASE EXCESS 2.1 (-2.0-2.0); VENOUS HCO3 25.2 MEQ/L (23.0-27.0); VENOUS O2 SATURATION 91.9 % (60.0-80.0); VENOUS PARTIAL PRESSURE CO2 34.4 mmHg (38.0-50.0); VENOUS PARTIAL PRESSURE O2 62.1 mmHg (30.0-50.0); VENOUS PH 7.483 UNITS (7.330-7.430); VENOUS STANDARD HCO3 26.2 MEQ/L; VENOUS TOTAL CO2 26.3 MEQ/L (24.0-28.0)
[2022-05-28 20:42] LABS: HEMOGLOBIN A1c 9.1 % (4.0-6.0)
[2022-05-28] MEDS ORDERED: HumuLIN R (REGULAR) INSULIN (NovoLIN R) **100U/ML** PER UNIT IV STA (20:42)
[2022-05-28] MEDS ORDERED: POTASSIUM CHLORIDE 10MEQ SR TABLET PO ONE (20:45)
[2022-05-28 21:58] LABS: ALBUMIN 3.5 G/DL (3.2-5.2); ALKALINE PHOSPHATASE 292 U/L (46-116); ALT/SGPT 65 U/L (7.0-40); AST/SGOT 59 U/L (<34); BILIRUBIN,DIRECT 0.6 MG/DL (<0.4); BILIRUBIN,TOTAL 1.3 MG/DL (0.3-1.2); MAGNESIUM LEVEL 2.1 MG/DL (1.8-2.4); TOTAL PROTEIN 6.2 G/DL (5.7-8.2)
[2022-05-28 22:05] LABS: CPK CREATINE PHOSPHOKINASE 47 U/L (34-145); MB/CK RELATIVE INDEX 2.12 (< OR =4)
[2022-05-28 22:14] LABS: OSMOLALITY SERUM 308 MOSM/KG (280-301)
[2022-05-28 23:27] LABS: RSV AMPLIFICATION NEGATIVE (NEGATIVE)
[2022-05-29] MEDS ORDERED: ACETAMINOPHEN TAB 650MG DOSE (2X325MG) PO PRN (02:35)
[2022-05-29] MEDS ORDERED: MOM 30ML SUSPENSION UDC PO PRN (02:35)
[2022-05-29] MEDS ORDERED: GLUCOSE 4GM CHEW TABLET PO PRN (02:35)
[2022-05-29] MEDS ORDERED: GLUCAGON INJ 1MG VIAL SC PRN (02:35)
[2022-05-29] MEDS ORDERED: DEXTROSE 50% 50ML SYRINGE IV PRN (02:35)
[2022-05-29] MEDS: METOPROLOL TARTRATE 100MG TAB PO SCH ×3 (02:57→21:00)
[2022-05-29] MEDS ORDERED: POTASSIUM CHLORIDE 10% LIQ 20MEQ/15ML UDC PO ONE (03:00)
[2022-05-29 03:45] VITALS: BP 125/91
[2022-05-29] MEDS ORDERED: LEVEMIR (INSULIN DETEMIR) 1 UNITS/0.01ML SC SCH ×3 (04:00→21:00)
[2022-05-29] MEDS ORDERED: DIGOXIN INJ 0.5 MG/2 ML AMP IV STA (04:40)
[2022-05-29] MEDS: LEVOTHYROXINE 88MCG TABLET (0.088 MG) PO SCH (05:13)
[2022-05-29 06:25] LABS: BLOOD UREA NITROGEN 15 MG/DL (9-23); CALCIUM LEVEL 8.7 MG/DL (8.3-10.6); CARBON DIOXIDE LEVEL 32 MMOL/L (20-31); CHLORIDE LEVEL 100 MMOL/L (98-107); CREATININE FOR GFR 0.86 MG/DL (0.55-1.30); GLOMERULAR FILTRATION RATE > 60.0 (>32); GLUCOSE, FASTING 338 MG/DL (74-106); POTASSIUM SERUM 3.2 MMOL/L (3.5-5.1); SODIUM LEVEL 137 MMOL/L (136-145)
[2022-05-29 06:32] LABS: THYROID STIMULATING HORMONE 5.228 uIU/ML (0.55-4.78)
[2022-05-29] MEDS ORDERED: LEVEMIR (INSULIN DETEMIR) 1 UNITS/0.01ML SC ONE ×2 (07:30)
[2022-05-29] MEDS ORDERED: POTASSIUM CHLORIDE 10MEQ SR TABLET PO ONE ×2 (08:00→09:30)
[2022-05-29 08:04] LABS: CHOLESTEROL RISK RATIO 2.04 (<5); HDL CHOLESTEROL 52.4 MG/DL (>40)
[2022-05-29] MEDS: MIRALAX *UNIT DOSE* 17GM PACKET PO SCH (09:00)
[2022-05-29] MEDS: FUROSEMIDE 40MG/4ML VIAL IV SCH ×2 (09:16→17:54)
[2022-05-29] MEDS: INSULIN LISPRO (NovoLOG) PER UNIT SC SCH ×4 (09:16→20:53)
[2022-05-29] MEDS: PANTOPRAZOLE 40MG TAB (PROTONIX) PO SCH (09:17)
[2022-05-29] MEDS: APIXABAN 2.5 MG TAB (ELIQUIS) PO SCH ×2 (09:17→20:59)
[2022-05-29] MEDS: SUCRALFATE 1 GM TAB PO SCH ×2 (09:17→17:54)
[2022-05-29] MEDS: FERROUS SULFATE 325MG TAB PO SCH (09:18)
[2022-05-29 10:00] VITALS: BP 124/83
[2022-05-29 12:30] VITALS: BP 125/82
[2022-05-29 14:00] VITALS: BP 124/80
[2022-05-29 14:13] LABS: ABG BASE EXCESS 7.9 (-2.0-2.0); ABG HCO3 31.2 MEQ/L (22.0-26.0); ABG O2 SATURATION 95.8 % (95.0-99.0); ABG PARTIAL PRESSURE CO2 38.6 mmHg (35.0-45.0); ABG STANDARD HCO3 31.7 MEQ/L (22.0-26.0); ABG TOTAL CO2 32.4 MEQ/L (23.0-31.0); ABG pH (ARTERIAL) 7.525 UNITS (7.350-7.450)
[2022-05-29] MEDS: LEVALBUTEROL 1.25MG 0.5ML CONCENTRATE NEB NEB PRN (17:57)
[2022-05-29 18:00] VITALS: BP 123/79
[2022-05-29 20:33] VITALS: BP 124/80
[2022-05-29] MEDS: ATORVASTATIN 20 MG TAB PO SCH (20:59)
[2022-05-30] VITALS (7 sets, daily range): BP systolic 98–125; BP diastolic 58–80
[2022-05-30 05:53] LABS: HEMATOCRIT 40.1 % (36.0-47.0); HEMOGLOBIN 13.4 g/dl (12.0-15.5); MEAN CORPUSCULAR HEMOGLOBIN 29.5 pg (27.0-33.0); MEAN CORPUSCULAR HGB CONC 33.4 g/dl (32.0-36.5); MEAN CORPUSCULAR VOLUME 88.1 fl (80.0-96.0); PLATELET COUNT, AUTOMATED 218 10^3/uL (150-450); RED BLOOD COUNT 4.55 10^6/uL (4.00-5.40); WHITE BLOOD COUNT 8.4 10^3/uL (4.0-10.0)
[2022-05-30] MEDS: LEVOTHYROXINE 88MCG TABLET (0.088 MG) PO SCH (06:01)
[2022-05-30 06:40] LABS: ALBUMIN 3.1 G/DL (3.2-5.2); ALKALINE PHOSPHATASE 232 U/L (46-116); ALT/SGPT 50 U/L (7.0-40); AST/SGOT 45 U/L (<34); BILIRUBIN,TOTAL 1.5 MG/DL (0.3-1.2); BLOOD UREA NITROGEN 13 MG/DL (9-23); CALCIUM LEVEL 8.9 MG/DL (8.3-10.6); CARBON DIOXIDE LEVEL 32 MMOL/L (20-31); CHLORIDE LEVEL 98 MMOL/L (98-107); CREATININE FOR GFR 0.89 MG/DL (0.55-1.30); GLOMERULAR FILTRATION RATE > 60.0 (>32); GLUCOSE, FASTING 79 MG/DL (74-106); POTASSIUM SERUM 2.7 MMOL/L (3.5-5.1); SODIUM LEVEL 139 MMOL/L (136-145); TOTAL PROTEIN 5.8 G/DL (5.7-8.2)
[2022-05-30] MEDS: INSULIN LISPRO (NovoLOG) PER UNIT SC SCH ×4 (07:30→21:00)
[2022-05-30 07:52] LABS: MAGNESIUM LEVEL 1.9 MG/DL (1.8-2.4)
[2022-05-30] MEDS ORDERED: POTASSIUM CHLORIDE 10% LIQ 20MEQ/15ML UDC PO ONE (08:00)
[2022-05-30] MEDS: FUROSEMIDE 40MG/4ML VIAL IV SCH ×2 (08:21→17:00)
[2022-05-30] MEDS: FERROUS SULFATE 325MG TAB PO SCH (08:21)
[2022-05-30] MEDS: PANTOPRAZOLE 40MG TAB (PROTONIX) PO SCH (08:23)
[2022-05-30] MEDS: METOPROLOL TARTRATE 100MG TAB PO SCH ×2 (08:23→21:19)
[2022-05-30] MEDS: SUCRALFATE 1 GM TAB PO SCH ×2 (08:23→18:21)
[2022-05-30] MEDS: APIXABAN 2.5 MG TAB (ELIQUIS) PO SCH ×2 (08:24→21:09)
[2022-05-30] MEDS: MIRALAX *UNIT DOSE* 17GM PACKET PO SCH (08:25)
[2022-05-30] MEDS: LEVEMIR (INSULIN DETEMIR) 1 UNITS/0.01ML SC SCH ×2 (08:37→21:30)
[2022-05-30] MEDS ORDERED: POTASSIUM CHLORIDE 10MEQ SR TABLET PO ONE ×2 (10:00→12:00)
[2022-05-30 13:01] LABS: BLOOD UREA NITROGEN 13 MG/DL (9-23); CALCIUM LEVEL 8.8 MG/DL (8.3-10.6); CARBON DIOXIDE LEVEL 29 MMOL/L (20-31); CHLORIDE LEVEL 97 MMOL/L (98-107); CREATININE FOR GFR 0.89 MG/DL (0.55-1.30); GLOMERULAR FILTRATION RATE > 60.0 (>32); GLUCOSE, FASTING 262 MG/DL (74-106); POTASSIUM SERUM 3.7 MMOL/L (3.5-5.1); SODIUM LEVEL 136 MMOL/L (136-145)
[2022-05-30] MEDS: LEVALBUTEROL 1.25MG 0.5ML CONCENTRATE NEB NEB PRN (15:51)
[2022-05-30] MEDS ORDERED: FUROSEMIDE 40MG/4ML VIAL IV ONE (18:30)
[2022-05-30] MEDS: ATORVASTATIN 20 MG TAB PO SCH (21:09)
[2022-05-31 02:00] VITALS: BP 115/69
[2022-05-31 05:00] VITALS: BP 122/76
[2022-05-31] MEDS: LEVOTHYROXINE 88MCG TABLET (0.088 MG) PO SCH (06:08)
[2022-05-31 06:34] LABS: HEMATOCRIT 37.5 % (36.0-47.0); HEMOGLOBIN 12.3 g/dl (12.0-15.5); MEAN CORPUSCULAR HEMOGLOBIN 29.7 pg (27.0-33.0); MEAN CORPUSCULAR HGB CONC 32.8 g/dl (32.0-36.5); MEAN CORPUSCULAR VOLUME 90.6 fl (80.0-96.0); PLATELET COUNT, AUTOMATED 185 10^3/uL (150-450); RED BLOOD COUNT 4.14 10^6/uL (4.00-5.40); WHITE BLOOD COUNT 6.7 10^3/uL (4.0-10.0)
[2022-05-31 07:28] LABS: ALBUMIN 2.7 G/DL (3.2-5.2); BILIRUBIN,TOTAL 1.2 MG/DL (0.3-1.2); CALCIUM LEVEL 8.2 MG/DL (8.3-10.6); CREATININE FOR GFR 0.99 MG/DL (0.55-1.30); GLOMERULAR FILTRATION RATE 56.4 (>32); POTASSIUM SERUM 3.4 MMOL/L (3.5-5.1)
[2022-05-31] MEDS ORDERED: POTASSIUM CHLORIDE 10MEQ SR TABLET PO ONE ×2 (08:05→10:00)
[2022-05-31] MEDS ORDERED: CARD240C5 PO (08:06)
[2022-05-31] MEDS ORDERED: FURO40TA2 PO (08:12)
[2022-05-31] MEDS ORDERED: LANTINJ4 SC (08:12)
[2022-05-31] MEDS ORDERED: POTA1TAB23 PO (08:12)
[2022-05-31] MEDS: MIRALAX *UNIT DOSE* 17GM PACKET PO SCH (09:00)
[2022-05-31] MEDS: INSULIN LISPRO (NovoLOG) PER UNIT SC SCH ×4 (09:59→21:36)
[2022-05-31 10:00] VITALS: BP 114/58
[2022-05-31] MEDS: LEVEMIR (INSULIN DETEMIR) 1 UNITS/0.01ML SC SCH ×2 (10:00→21:37)
[2022-05-31] MEDS: FUROSEMIDE 40MG/4ML VIAL IV SCH (10:00)
[2022-05-31] MEDS: FERROUS SULFATE 325MG TAB PO SCH (10:01)
[2022-05-31] MEDS: METOPROLOL TARTRATE 100MG TAB PO SCH ×2 (10:02→21:39)
[2022-05-31] MEDS: PANTOPRAZOLE 40MG TAB (PROTONIX) PO SCH (10:03)
[2022-05-31] MEDS: APIXABAN 2.5 MG TAB (ELIQUIS) PO SCH ×2 (10:03→21:36)
[2022-05-31] MEDS: SUCRALFATE 1 GM TAB PO SCH ×2 (10:10→17:34)
[2022-05-31 14:00] VITALS: BP 106/66
[2022-05-31 18:00] VITALS: BP 110/72
[2022-05-31 20:50] VITALS: BP 112/68
[2022-05-31] MEDS: ATORVASTATIN 20 MG TAB PO SCH (21:36)
[2022-06-01 02:00] VITALS: BP 114/62
[2022-06-01] MEDS: LEVOTHYROXINE 88MCG TABLET (0.088 MG) PO SCH (05:02)
[2022-06-01 05:10] VITALS: BP 114/70
[2022-06-01 06:49] LABS: HEMATOCRIT 36.8 % (36.0-47.0); MEAN CORPUSCULAR HEMOGLOBIN 29.6 pg (27.0-33.0); MEAN CORPUSCULAR HGB CONC 32.6 g/dl (32.0-36.5); MEAN CORPUSCULAR VOLUME 90.6 fl (80.0-96.0); PLATELET COUNT, AUTOMATED 181 10^3/uL (150-450); RED BLOOD COUNT 4.06 10^6/uL (4.00-5.40); WHITE BLOOD COUNT 7.3 10^3/uL (4.0-10.0)
[2022-06-01] MEDS ORDERED: LANTINJ4 SC (07:17)
[2022-06-01 07:19] LABS: ALBUMIN 2.6 G/DL (3.2-5.2); BILIRUBIN,TOTAL 1.2 MG/DL (0.3-1.2); CALCIUM LEVEL 8.1 MG/DL (8.3-10.6); CREATININE FOR GFR 0.94 MG/DL (0.55-1.30); GLOMERULAR FILTRATION RATE 59.8 (>32); POTASSIUM SERUM 3.3 MMOL/L (3.5-5.1)
[2022-06-01 08:17] VITALS: BP 114/70
[2022-06-01] MEDS: SUCRALFATE 1 GM TAB PO SCH (08:17)
[2022-06-01] MEDS: METOPROLOL TARTRATE 100MG TAB PO SCH (08:17)
[2022-06-01] MEDS: INSULIN LISPRO (NovoLOG) PER UNIT SC SCH (08:17)
[2022-06-01] MEDS: PANTOPRAZOLE 40MG TAB (PROTONIX) PO SCH (08:18)
[2022-06-01] MEDS: APIXABAN 2.5 MG TAB (ELIQUIS) PO SCH (08:18)
[2022-06-01] MEDS: FERROUS SULFATE 325MG TAB PO SCH (08:18)
[2022-06-01] MEDS: MIRALAX *UNIT DOSE* 17GM PACKET PO SCH (08:20)
[2022-06-01] MEDS ORDERED: FUROSEMIDE 40 MG TAB PO SCH (09:00)
[2022-06-01] MEDS ORDERED: LEVEMIR (INSULIN DETEMIR) 1 UNITS/0.01ML SC SCH (09:00)
[2022-06-01 10:00] VITALS: BP 114/72
[2022-06-01] MEDS ORDERED: FURO40TA2 PO (10:10)
== END 2022-06-01 12:05 | DRG 637 ==
LOC: M ED 18:19 → EDBD 18:19 → M ED INP 05-29 02:31 → M MSPAV 05-29 03:43 → OBSVTOIN 05-31 17:18
PROVIDERS: ADMIT Internal Medicine; ATTEND Internal Medicine
DX: E11.65 Type 2 diabetes mellitus with hyperglycemia (principal); I50.33 Acute on chronic diastolic (congestive) heart failure; I48.20 Chronic atrial fibrillation, unspecified; E87.6 Hypokalemia; I11.0 Hypertensive heart disease with heart failure; E03.9 Hypothyroidism, unspecified; I27.20 Pulmonary hypertension, unspecified; K21.9 Gastro-esophageal reflux disease without esophagitis; I34.0 Nonrheumatic mitral (valve) insufficiency; K59.09 Other constipation; M81.0 Age-related osteoporosis without current pathological fracture; Z66 Do not resuscitate; Z90.49 Acquired absence of other specified parts of digestive tract; Z98.41 Cataract extraction status, right eye; Z98.42 Cataract extraction status, left eye; Z86.73 Personal history of transient ischemic attack (TIA), and cerebral infarction without residual deficits; Z79.01 Long term (current) use of anticoagulants; Z79.890 Hormone replacement therapy; Z79.899 Other long term (current) drug therapy

== ENCOUNTER 2022-07-06 23:36 | Inpatient (IN) | payer MEDICARE, OTHER ==
[~2022-07-06] VITALS: Ht 154.9 cm; Wt 79.1 kg
[~2022-07-06 23:36] MED LIST changes: +CARD240C5 PO; +CINN500C15 PO; +ELIQ2.5T PO; +FERR1TAB8 PO; +LANTINJ4 SC; +PANT-23 PO; +SUCR1TAB56 PO
[2022-07-07 00:30] LABS: BASO # 0.1 10^3/uL (0.0-0.2); BASO % 1.4 % (0.0-1.0); EOS # 0.1 10^3/uL (0.0-0.5); EOS % 1.4 % (0.0-3.0); HEMOGLOBIN 14.1 g/dl (12.0-15.5); LYMPH # 1.7 10^3/uL (1.5-5.0); LYMPH % 25.8 % (24.0-44.0); MEAN CORPUSCULAR HEMOGLOBIN 29.7 pg (27.0-33.0); MEAN CORPUSCULAR VOLUME 92.8 fl (80.0-96.0); MONO # 0.6 10^3/uL (0.0-0.8); MONO % 8.3 % (2.0-8.0); NEUTROPHILS # 4.2 10^3/uL (1.5-8.5); NEUTROPHILS % 62.6 % (36.0-66.0); PLATELET COUNT, AUTOMATED 196 10^3/uL (150-450); RED BLOOD COUNT 4.74 10^6/uL (4.00-5.40); WHITE BLOOD COUNT 6.6 10^3/uL (4.0-10.0)
[2022-07-07 00:44] LABS: INR 1.32; PROTHROMBIN TIME 16.6 SECONDS (12.5-14.5)
[2022-07-07 00:56] LABS: CPK CREATINE PHOSPHOKINASE 42 U/L (34-145)
[2022-07-07 01:00] LABS: ALBUMIN 3.3 G/DL (3.2-5.2); ALKALINE PHOSPHATASE 233 U/L (46-116); ALT/SGPT 68 U/L (7.0-40); AST/SGOT 59 U/L (<34); BILIRUBIN,DIRECT 0.5 MG/DL (<0.4); BILIRUBIN,TOTAL 1.2 MG/DL (0.3-1.2); BLOOD UREA NITROGEN 21 MG/DL (9-23); CALCIUM LEVEL 8.5 MG/DL (8.3-10.6); CARBON DIOXIDE LEVEL 32 MMOL/L (20-31); CHLORIDE LEVEL 102 MMOL/L (98-107); CK-MB VALUE MASS < 1.0 NG/ML (<3.6); GLOMERULAR FILTRATION RATE > 60.0 (>32); GLUCOSE, FASTING 170 MG/DL (74-106); MB/CK RELATIVE INDEX 2.38 (< OR =4); POTASSIUM SERUM 3.8 MMOL/L (3.5-5.1); SODIUM LEVEL 138 MMOL/L (136-145); THYROID STIMULATING HORMONE 11.307 uIU/ML (0.55-4.78)
[2022-07-07 01:11] LABS: RSV AMPLIFICATION NEGATIVE (NEGATIVE)
[2022-07-07] MEDS ORDERED: FUROSEMIDE 40MG/4ML VIAL IV ONE (01:30)
[2022-07-07 01:57] LABS: FREE T4 0.99 NG/DL (0.89-1.76)
[2022-07-07] MEDS ORDERED: GLUCOSE 4GM CHEW TABLET PO PRN (02:50)
[2022-07-07] MEDS ORDERED: DEXTROSE 50% 50ML SYRINGE IV PRN (02:50)
[2022-07-07] MEDS ORDERED: ACETAMINOPHEN TAB 650MG DOSE (2X325MG) PO PRN (02:50)
[2022-07-07] MEDS ORDERED: GLUCAGON INJ 1MG VIAL SC PRN (02:50)
[2022-07-07] MEDS ORDERED: MIRA1POW3 PO (03:02)
[2022-07-07] MEDS ORDERED: CARD240C5 PO (03:02)
[2022-07-07] MEDS ORDERED: FURO40TA2 PO (03:02)
[2022-07-07] MEDS ORDERED: POTA-149 PO (03:02)
[2022-07-07] MEDS ORDERED: LANTINJ4 SC (03:02)
[2022-07-07] MEDS ORDERED: HOME MED LIST COMPLETE! XX SCH (03:05)
[2022-07-07] MEDS ORDERED: MOM 30ML SUSPENSION UDC PO PRN (03:35)
[2022-07-07] MEDS ORDERED: FLUTICASONE PROP 0.05% NASAL SPRAY 16 GM (FLONASE) NARES PRN (03:35)
[2022-07-07] MEDS ORDERED: RAMELTEON 8 MG TAB (ROZEREM) PO PRN (03:35)
[2022-07-07] MEDS: LEVOTHYROXINE 88MCG TABLET (0.088 MG) PO SCH (05:58)
[2022-07-07 08:17] LABS: BLOOD UREA NITROGEN 19 MG/DL (9-23); CARBON DIOXIDE LEVEL 33 MMOL/L (20-31); CHLORIDE LEVEL 99 MMOL/L (98-107); CREATININE FOR GFR 0.85 MG/DL (0.55-1.30); GLOMERULAR FILTRATION RATE > 60.0 (>32); GLUCOSE, FASTING 155 MG/DL (74-106); POTASSIUM SERUM 3.3 MMOL/L (3.5-5.1); SODIUM LEVEL 139 MMOL/L (136-145)
[2022-07-07] MEDS ORDERED: POTASSIUM CHLORIDE 10MEQ SR TABLET PO SCH (09:00)
[2022-07-07] MEDS: INSULIN LISPRO (NovoLOG) PER UNIT SC SCH ×4 (09:07→21:13)
[2022-07-07] MEDS: FERROUS SULFATE 325MG TAB PO SCH (09:51)
[2022-07-07] MEDS: APIXABAN 2.5 MG TAB (ELIQUIS) PO SCH ×2 (09:51→21:15)
[2022-07-07] MEDS: SUCRALFATE 1 GM TAB PO SCH ×2 (09:51→21:14)
[2022-07-07] MEDS: METOPROLOL TARTRATE 100MG TAB PO SCH ×2 (09:52→21:14)
[2022-07-07] MEDS: PANTOPRAZOLE 40MG TAB (PROTONIX) PO SCH (09:52)
[2022-07-07] MEDS: MIRALAX *UNIT DOSE* 17GM PACKET PO SCH (09:52)
[2022-07-07] MEDS: FUROSEMIDE 40MG/4ML VIAL IV SCH ×2 (09:52→17:49)
[2022-07-07] MEDS: LEVEMIR (INSULIN DETEMIR) 1 UNITS/0.01ML SC SCH ×2 (09:53→21:14)
[2022-07-07] MEDS ORDERED: POTASSIUM CHLORIDE 10MEQ SR TABLET PO ONE (09:55)
[2022-07-07 10:47] VITALS: BP 128/85
[2022-07-07 11:00] VITALS: BP 124/81
[2022-07-07] MEDS ORDERED: POTASSIUM CHLORIDE 10% LIQ 20MEQ/15ML UDC PO SCH (11:00)
[2022-07-07 12:00] VITALS: BP 133/80
[2022-07-07] MEDS: POTASSIUM CHLORIDE 10MEQ SR TABLET PO SCH ×2 (12:22→13:52)
[2022-07-07 16:00] VITALS: BP 142/76
[2022-07-07 20:00] VITALS: BP 135/83
[2022-07-07] MEDS: ATORVASTATIN 20 MG TAB PO SCH (21:15)
[2022-07-08] VITALS (7 sets, daily range): BP systolic 107–126; BP diastolic 69–81
[2022-07-08] MEDS ORDERED: UNRESOLVED CLARIFICATION ENTRY XX SCH (00:01)
[2022-07-08 04:52] LABS: BASO # 0.1 10^3/uL (0.0-0.2); BASO % 1.3 % (0.0-1.0); EOS # 0.1 10^3/uL (0.0-0.5); EOS % 1.4 % (0.0-3.0); HEMATOCRIT 41.2 % (36.0-47.0); HEMOGLOBIN 13.4 g/dl (12.0-15.5); LYMPH # 1.8 10^3/uL (1.5-5.0); LYMPH % 29.1 % (24.0-44.0); MEAN CORPUSCULAR HEMOGLOBIN 29.6 pg (27.0-33.0); MEAN CORPUSCULAR HGB CONC 32.5 g/dl (32.0-36.5); MEAN CORPUSCULAR VOLUME 90.9 fl (80.0-96.0); MONO # 0.6 10^3/uL (0.0-0.8); MONO % 10.1 % (2.0-8.0); NEUTROPHILS # 3.6 10^3/uL (1.5-8.5); NEUTROPHILS % 57.8 % (36.0-66.0); PLATELET COUNT, AUTOMATED 203 10^3/uL (150-450); RED BLOOD COUNT 4.53 10^6/uL (4.00-5.40); WHITE BLOOD COUNT 6.2 10^3/uL (4.0-10.0)
[2022-07-08 05:28] LABS: ALBUMIN 2.9 G/DL (3.2-5.2); ALKALINE PHOSPHATASE 175 U/L (46-116); ALT/SGPT 46 U/L (7.0-40); AST/SGOT 36 U/L (<34); BILIRUBIN,TOTAL 1.2 MG/DL (0.3-1.2); BLOOD UREA NITROGEN 16 MG/DL (9-23); CALCIUM LEVEL 8.8 MG/DL (8.3-10.6); CARBON DIOXIDE LEVEL 33 MMOL/L (20-31); CHLORIDE LEVEL 101 MMOL/L (98-107); CREATININE FOR GFR 0.81 MG/DL (0.55-1.30); GLOMERULAR FILTRATION RATE > 60.0 (>32); GLUCOSE, FASTING 82 MG/DL (74-106); MAGNESIUM LEVEL 1.7 MG/DL (1.8-2.4); POTASSIUM SERUM 3.5 MMOL/L (3.5-5.1); SODIUM LEVEL 142 MMOL/L (136-145); TOTAL PROTEIN 5.2 G/DL (5.7-8.2)
[2022-07-08] MEDS: LEVOTHYROXINE 88MCG TABLET (0.088 MG) PO SCH (06:26)
[2022-07-08] MEDS: MAG SULF 1GM/100ML (MAG RUN) 1 GM in IV 1 EA IV SCH ×2 (06:52→08:08)
[2022-07-08] MEDS: INSULIN LISPRO (NovoLOG) PER UNIT SC SCH ×4 (07:30→20:31)
[2022-07-08] MEDS: FUROSEMIDE 40MG/4ML VIAL IV SCH ×2 (08:09→17:41)
[2022-07-08] MEDS: LEVEMIR (INSULIN DETEMIR) 1 UNITS/0.01ML SC SCH ×2 (08:57→20:29)
[2022-07-08] MEDS: SUCRALFATE 1 GM TAB PO SCH ×2 (09:34→20:29)
[2022-07-08] MEDS: APIXABAN 2.5 MG TAB (ELIQUIS) PO SCH ×2 (09:34→20:29)
[2022-07-08] MEDS: FERROUS SULFATE 325MG TAB PO SCH (09:34)
[2022-07-08] MEDS: PANTOPRAZOLE 40MG TAB (PROTONIX) PO SCH (09:34)
[2022-07-08] MEDS: METOPROLOL TARTRATE 100MG TAB PO SCH ×2 (09:35→20:31)
[2022-07-08] MEDS: MIRALAX *UNIT DOSE* 17GM PACKET PO SCH (09:37)
[2022-07-08] MEDS ORDERED: TORS20TA2 PO (10:45)
[2022-07-08] MEDS ORDERED: DIGOXIN 0.125 MG TAB PO ONE (10:50)
[2022-07-08] MEDS ORDERED: POTASSIUM CHLORIDE 10MEQ SR TABLET PO ONE (11:40)
[2022-07-08] MEDS: ATORVASTATIN 20 MG TAB PO SCH (20:29)
[2022-07-09 04:00] VITALS: BP 133/79
[2022-07-09] MEDS: LEVOTHYROXINE 88MCG TABLET (0.088 MG) PO SCH (05:15)
[2022-07-09 06:05] LABS: ALBUMIN 2.8 G/DL (3.2-5.2); ALKALINE PHOSPHATASE 178 U/L (46-116); ALT/SGPT 42 U/L (7.0-40); AST/SGOT 39 U/L (<34); BILIRUBIN,TOTAL 1.3 MG/DL (0.3-1.2); BLOOD UREA NITROGEN 15 MG/DL (9-23); CALCIUM LEVEL 8.4 MG/DL (8.3-10.6); CARBON DIOXIDE LEVEL 33 MMOL/L (20-31); CHLORIDE LEVEL 101 MMOL/L (98-107); CREATININE FOR GFR 0.85 MG/DL (0.55-1.30); GLOMERULAR FILTRATION RATE > 60.0 (>32); GLUCOSE, FASTING 71 MG/DL (74-106); MAGNESIUM LEVEL 1.9 MG/DL (1.8-2.4); POTASSIUM SERUM 3.5 MMOL/L (3.5-5.1); SODIUM LEVEL 140 MMOL/L (136-145)
[2022-07-09] MEDS: INSULIN LISPRO (NovoLOG) PER UNIT SC SCH ×2 (07:12→11:58)
[2022-07-09] MEDS ORDERED: DIGOXIN 0.125 MG TAB PO SCH (08:00)
[2022-07-09 08:15] VITALS: BP 134/78
[2022-07-09 08:17] VITALS: BP 134/78
[2022-07-09] MEDS: SUCRALFATE 1 GM TAB PO SCH (08:17)
[2022-07-09] MEDS: PANTOPRAZOLE 40MG TAB (PROTONIX) PO SCH (08:17)
[2022-07-09] MEDS: FUROSEMIDE 40MG/4ML VIAL IV SCH (08:17)
[2022-07-09] MEDS: METOPROLOL TARTRATE 100MG TAB PO SCH (08:18)
[2022-07-09] MEDS: MIRALAX *UNIT DOSE* 17GM PACKET PO SCH (08:18)
[2022-07-09] MEDS: APIXABAN 2.5 MG TAB (ELIQUIS) PO SCH (08:18)
[2022-07-09] MEDS: FERROUS SULFATE 325MG TAB PO SCH (08:18)
[2022-07-09] MEDS ORDERED: DIGO0.123 PO (10:33)
[2022-07-09] MEDS: LEVEMIR (INSULIN DETEMIR) 1 UNITS/0.01ML SC SCH (11:58)
[2022-07-09] MEDS ORDERED: METO25TA PO (13:40)
== END 2022-07-09 14:07 | DRG 291 ==
LOC: M ED 23:36 → EDBD 23:36 → M ED INP 07-07 02:47 → ENRESERV 07-07 09:15 → M ICU 07-07 10:37
PROVIDERS: ADMIT Internal Medicine; ATTEND Internal Medicine
PROC: B246ZZZ Ultrasonography of Right and Left Heart (ICD-10-PCS; principal; 2022-07-07)
DX: I11.0 Hypertensive heart disease with heart failure (principal); I50.33 Acute on chronic diastolic (congestive) heart failure; I48.20 Chronic atrial fibrillation, unspecified; M48.54XA Collapsed vertebra, not elsewhere classified, thoracic region, initial encounter for fracture; E78.5 Hyperlipidemia, unspecified; E11.9 Type 2 diabetes mellitus without complications; E03.9 Hypothyroidism, unspecified; Z87.11 Personal history of peptic ulcer disease; M81.0 Age-related osteoporosis without current pathological fracture; K21.9 Gastro-esophageal reflux disease without esophagitis; I27.20 Pulmonary hypertension, unspecified; I36.1 Nonrheumatic tricuspid (valve) insufficiency; K59.09 Other constipation; E87.6 Hypokalemia; D64.9 Anemia, unspecified; Z66 Do not resuscitate; Z86.73 Personal history of transient ischemic attack (TIA), and cerebral infarction without residual deficits; Z79.890 Hormone replacement therapy; Z79.01 Long term (current) use of anticoagulants; Z79.4 Long term (current) use of insulin; Z79.899 Other long term (current) drug therapy; Z98.41 Cataract extraction status, right eye; Z98.42 Cataract extraction status, left eye; Z90.49 Acquired absence of other specified parts of digestive tract

== ENCOUNTER → 2023-07-04 | Outpatient (REF) | payer MEDICARE, OTHER ==
[~2023-07-04] MED LIST changes: +CYAN-1 PO; -CYAN100050 PO; +DIGO0.123 PO; +METO25TA PO; +MIRA33506 PO; +POTA-149 PO; +TORS20TA2 PO
[2023-07-05 13:43] LABS: APPEARANCE, URINE CLEAR (CLEAR); BACTERIA, URINE AUTO NEGATIVE (NEGATIVE); BILIRUBIN, URINE AUTO NEGATIVE (NEGATIVE); BLOOD, URINE BLOOD NEGATIVE (NEGATIVE); COLOR, URINE YELLOW (YELLOW); GLUCOSE, URINE (UA) AUTO NEGATIVE (NEGATIVE); KETONE, URINE AUTO NEGATIVE (NEGATIVE); LEUKOCYTE ESTERASE, URINE AUTO 1+ (NEGATIVE); MUCUS, URINE SMALL (NEGATIVE); NITRITE, URINE AUTO NEGATIVE (NEGATIVE); PROTEIN, URINE AUTO NEGATIVE (NEGATIVE); RBC, URINE AUTO 2 /HPF (0-3); SQUAMOUS EPITHELIAL CELL UR AU 1 /HPF (0-6); UROBILINOGEN, URINE AUTO 0.2 mg/dL (0.0-2.0); WBC, URINE AUTO 11 /HPF (0-3)
== END ==
PROVIDERS: ATTEND Family Medicine
DX: R35.0 Frequency of micturition (principal); R32 Unspecified urinary incontinence

== ENCOUNTER → 2023-08-06 | Outpatient (REF) | payer MEDICARE, OTHER ==
[2023-08-06 14:22] LABS: RSV AMPLIFICATION NEGATIVE (NEGATIVE)
== END ==
PROVIDERS: ATTEND Family Medicine
DX: R09.89 Other specified symptoms and signs involving the circulatory and respiratory systems (principal)

== ENCOUNTER 2023-09-21 07:15 | Inpatient (IN) | payer MEDICARE, OTHER ==
[~2023-09-21] VITALS: Ht 154.9 cm; Wt 60.6 kg
[~2023-09-21 07:15] MED LIST changes: -RAMI1CAP22 PO; +RAMI2.5C42 PO
[2023-09-21 08:24] LABS: BASO # 0.1 10^3/uL (0.0-0.2); BASO % 1.1 % (0.0-1.0); EOS # 0.1 10^3/uL (0.0-0.5); EOS % 0.8 % (0.0-3.0); HEMATOCRIT 41.3 % (36.0-47.0); HEMOGLOBIN 14.3 g/dl (12.0-15.5); LYMPH # 1.7 10^3/uL (1.5-5.0); LYMPH % 21.1 % (24.0-44.0); MEAN CORPUSCULAR HEMOGLOBIN 32.4 pg (27.0-33.0); MEAN CORPUSCULAR HGB CONC 34.6 g/dl (32.0-36.5); MEAN CORPUSCULAR VOLUME 93.7 fl (80.0-96.0); MONO # 0.6 10^3/uL (0.0-0.8); MONO % 7.7 % (2.0-8.0); NEUTROPHILS # 5.5 10^3/uL (1.5-8.5); NEUTROPHILS % 68.9 % (36.0-66.0); PLATELET COUNT, AUTOMATED 173 10^3/uL (150-450); RED BLOOD COUNT 4.41 10^6/uL (4.00-5.40)
[2023-09-21 09:03] LABS: CALCIUM LEVEL 9.2 MG/DL (8.3-10.6); CREATININE FOR GFR 1.22 MG/DL (0.55-1.30); GLOMERULAR FILTRATION RATE 44.2 (>32); MAGNESIUM LEVEL 2.1 MG/DL (1.8-2.4); POTASSIUM SERUM 4.4 MMOL/L (3.5-5.1); THYROID STIMULATING HORMONE 4.506 uIU/ML (0.55-4.78)
[2023-09-21] MEDS ORDERED: META0.52 PO (10:39)
[2023-09-21] MEDS ORDERED: LIDO1PAD TOP (10:39)
[2023-09-21] MEDS ORDERED: TORS20TA2 PO (10:39)
[2023-09-21] MEDS ORDERED: IBUP1TAB5 PO (10:39)
[2023-09-21] MEDS ORDERED: LIDO76.52 TOP (10:39)
[2023-09-21] MEDS ORDERED: OMEG10002 PO (10:39)
[2023-09-21] MEDS ORDERED: ACET-683 PO (10:39)
[2023-09-21] MEDS ORDERED: SENN-52 PO (10:39)
[2023-09-21] MEDS ORDERED: HOME MED LIST COMPLETE! XX SCH (10:40)
[2023-09-21 11:35] VITALS: BP 170/72; TEMP 97.7; O2SAT 98
[2023-09-21] MEDS ORDERED: IBUPROFEN 400MG TAB PO PRN (12:20)
[2023-09-21] MEDS ORDERED: MOM 30ML SUSPENSION UDC PO PRN (12:20)
[2023-09-21] MEDS ORDERED: ACETAMINOPHEN 500 MG TAB PO PRN (12:20)
[2023-09-21] MEDS ORDERED: LIDOCAINE 5% (LIDODERM) PATCH TOP PRN (12:20)
[2023-09-21] MEDS ORDERED: MIRALAX *UNIT DOSE* 17GM PACKET PO PRN (12:20)
[2023-09-21] MEDS: POTASSIUM CHLORIDE 10MEQ SR TABLET PO SCH (13:47)
[2023-09-21] MEDS: LEVEMIR (INSULIN DETEMIR) 1 UNITS/0.01ML SC SCH (13:47)
[2023-09-21] MEDS: SENOKOT S TAB PO SCH (13:48)
[2023-09-21] MEDS: APIXABAN 2.5 MG TAB (ELIQUIS) PO SCH (13:48)
[2023-09-21] MEDS: METAMUCIL (PSYLLIUM) PACKET PO SCH (13:48)
[2023-09-21] MEDS: FERROUS SULFATE 325MG TAB PO SCH (13:48)
[2023-09-21] MEDS: PANTOPRAZOLE 40MG TAB (PROTONIX) PO SCH (14:05)
[2023-09-21] MEDS: **hydrALAZINE HCL** 25 MG TAB PO SCH (14:06)
[2023-09-21 16:00] VITALS: BP_SYST 164; BP_SYST 172; BP_SYST 176; BP_DIAS 58; BP_DIAS 60; BP_DIAS 68
[2023-09-21 20:00] VITALS: BP_SYST 139; BP_SYST 146; BP_DIAS 64; BP_DIAS 72; TEMP 97.6; O2SAT 99
[2023-09-21] MEDS: OMEGA-3 1000MG CAPSULE PO SCH (20:25)
[2023-09-21] MEDS ORDERED: TORSEMIDE 20 MG TAB PO SCH (21:00)
[2023-09-21] MEDS: ISOSORBIDE DIN (ISORDIL) 10MG TAB PO SCH (22:00)
[2023-09-22] VITALS (7 sets, daily range): BP systolic 130–172; BP diastolic 60–74; TEMP 97–98.5; O2SAT 97–99
[2023-09-22 06:53] LABS: CALCIUM LEVEL 9.5 MG/DL (8.3-10.6); CREATININE FOR GFR 1.02 MG/DL (0.55-1.30); GLOMERULAR FILTRATION RATE 54.3 (>32); MAGNESIUM LEVEL 2.2 MG/DL (1.8-2.4); POTASSIUM SERUM 4.2 MMOL/L (3.5-5.1)
[2023-09-22] MEDS: TORSEMIDE 20 MG TAB PO ONE (08:52)
[2023-09-22] MEDS: LEVOTHYROXINE 88MCG TABLET (0.088 MG) PO SCH (08:52)
[2023-09-22] MEDS: ISOSORBIDE DIN. (ISORDIL) 20 MG TAB PO SCH (11:38)
[2023-09-22] MEDS: LEVEMIR (INSULIN DETEMIR) 1 UNITS/0.01ML SC SCH (20:12)
[2023-09-23 04:40] VITALS: BP 145/69; TEMP 98.2; O2SAT 98
[2023-09-23 06:16] VITALS: BP 165/71
[2023-09-23 08:00] VITALS: BP 136/62; TEMP 97.7; O2SAT 97
[2023-09-23] MEDS: ISOSORBIDE DIN. (ISORDIL) 20 MG TAB PO ONE (08:21)
[2023-09-23] MEDS: TORSEMIDE 20 MG TAB PO SCH (08:23)
[2023-09-23 08:34] LABS: CALCIUM LEVEL 8.8 MG/DL (8.3-10.6); CREATININE FOR GFR 1.17 MG/DL (0.55-1.30); GLOMERULAR FILTRATION RATE 46.4 (>32); POTASSIUM SERUM 3.6 MMOL/L (3.5-5.1)
[2023-09-23] MEDS: **hydrALAZINE** 10 MG TAB PO SCH (11:50)
[2023-09-23] MEDS: CARVedilol 6.25 MG TAB PO SCH (12:25)
[2023-09-23 14:00] VITALS: BP 119/57; TEMP 97.8; O2SAT 99
[2023-09-23 20:00] VITALS: BP 123/59; TEMP 98.6; O2SAT 95
[2023-09-23] MEDS: ISOSORBIDE DIN. (ISORDIL) 20 MG TAB PO SCH (20:02)
[2023-09-24 04:00] VITALS: BP 135/52; TEMP 98.9; O2SAT 95
[2023-09-24] MEDS ORDERED: HYDR-161 PO (10:41)
[2023-09-24] MEDS ORDERED: CARV6.25 PO (10:41)
[2023-09-24] MEDS ORDERED: AMLO1TAB25 PO (10:41)
[2023-09-24 12:00] VITALS: BP 131/50; TEMP 97.7; O2SAT 96
== END 2023-09-24 12:34 | DRG 312 ==
LOC: M ED 07:15 → EDBD 07:15 → M ED INP 10:27 → M ICU 11:42 → M MSPAV 09-23 18:06
PROVIDERS: ADMIT General Practice; ATTEND Family Medicine
DX: R55 Syncope and collapse (principal); I50.32 Chronic diastolic (congestive) heart failure; I48.20 Chronic atrial fibrillation, unspecified; R00.1 Bradycardia, unspecified; T44.7X5A Adverse effect of beta-adrenoreceptor antagonists, initial encounter; Z86.73 Personal history of transient ischemic attack (TIA), and cerebral infarction without residual deficits; E11.649 Type 2 diabetes mellitus with hypoglycemia without coma; E03.9 Hypothyroidism, unspecified; E78.5 Hyperlipidemia, unspecified; I16.0 Hypertensive urgency; M81.0 Age-related osteoporosis without current pathological fracture; K21.9 Gastro-esophageal reflux disease without esophagitis; I34.0 Nonrheumatic mitral (valve) insufficiency; S00.03XA Contusion of scalp, initial encounter; I27.20 Pulmonary hypertension, unspecified; I11.0 Hypertensive heart disease with heart failure; I71.40 Abdominal aortic aneurysm, without rupture, unspecified; Z66 Do not resuscitate; Z90.49 Acquired absence of other specified parts of digestive tract; Z98.41 Cataract extraction status, right eye; Z98.42 Cataract extraction status, left eye; W18.30XA Fall on same level, unspecified, initial encounter; Y92.122 Bedroom in nursing home as the place of occurrence of the external cause; Y93.E9 Activity, other interior property and clothing maintenance; Y99.8 Other external cause status; Z79.01 Long term (current) use of anticoagulants; Z79.899 Other long term (current) drug therapy

== ENCOUNTER 2023-10-27 04:27 | Emergency (ER) | payer MEDICARE, OTHER ==
[~2023-10-27] VITALS: Ht 152.4 cm; Wt 61.4 kg
[~2023-10-27 04:27] MED LIST changes: +ACET-683 PO; +AMLO1TAB25 PO; +CARV6.25 PO; +HYDR-161 PO; +IBUP1TAB5 PO; +LIDO1PAD TOP; +LIDO76.52 TOP; +META0.52 PO; +OMEG10002 PO; +SENN-52 PO
[2023-10-27] MEDS: LIDOCAINE W/EPINEPHRINE 1% 20ML VIAL SC ONE (04:46)
[2023-10-27] MEDS: BOOSTRIX VACCINE (TETANUS/DIPHTH/ACEL. PERTUSSIS) 0.5ML SYR IM ONE (05:02)
[2023-10-27 05:45] VITALS: BP 165/77; TEMP 97; O2SAT 97
== END 2023-10-27 07:22 | disposition home or self-care (01) ==
LOC: M ED 04:27
DX: S81.812A Laceration without foreign body, left lower leg, initial encounter (principal); Y92.019 Unspecified place in single-family (private) house as the place of occurrence of the external cause; Y93.9 Activity, unspecified; Y99.9 Unspecified external cause status; W06.XXXA Fall from bed, initial encounter; I50.22 Chronic systolic (congestive) heart failure; E11.9 Type 2 diabetes mellitus without complications; E03.9 Hypothyroidism, unspecified; Z79.1 Long term (current) use of non-steroidal anti-inflammatories (NSAID); Z79.4 Long term (current) use of insulin; Z79.899 Other long term (current) drug therapy; Z23 Encounter for immunization

== ENCOUNTER → 2023-12-09 | Outpatient (REF) | payer MEDICARE | LOC: M SFHCPLAZ 14:41 | PROVIDERS: ATTEND Student in an Organized Health Care Education/Training Program | DX: I10 Essential (primary) hypertension (principal); E78.2 Mixed hyperlipidemia; E11.42 Type 2 diabetes mellitus with diabetic polyneuropathy ==

== ENCOUNTER → 2023-12-14 | Outpatient (REF) | payer MEDICARE ==
[2023-12-14 12:15] LABS: CREATININE, URINE 32.6 MG/DL
[2023-12-14 12:16] LABS: MALB URINE SIEMENS < 3.0 MG/L; MAU/CREAT RATIO 9.2 MCG/MG (0.0-30.0)
== END ==
PROVIDERS: ATTEND Student in an Organized Health Care Education/Training Program
DX: E78.2 Mixed hyperlipidemia (principal); I10 Essential (primary) hypertension; E11.42 Type 2 diabetes mellitus with diabetic polyneuropathy

== ENCOUNTER → 2023-12-31 | Outpatient (REF) | payer MEDICARE ==
[2023-12-31 08:05] LABS: BASO # 0.1 10^3/uL (0.0-0.2); EOS # 0.1 10^3/uL (0.0-0.5); EOS % 1.8 % (0.0-3.0); HEMATOCRIT 38.7 % (36.0-47.0); HEMOGLOBIN 13.1 g/dl (12.0-15.5); LYMPH # 1.5 10^3/uL (1.5-5.0); LYMPH % 21.9 % (24.0-44.0); MEAN CORPUSCULAR HEMOGLOBIN 31.2 pg (27.0-33.0); MEAN CORPUSCULAR HGB CONC 33.9 g/dl (32.0-36.5); MEAN CORPUSCULAR VOLUME 92.1 fl (80.0-96.0); MONO # 0.6 10^3/uL (0.0-0.8); MONO % 8.9 % (2.0-8.0); NEUTROPHILS # 4.5 10^3/uL (1.5-8.5); NEUTROPHILS % 66.1 % (36.0-66.0); PLATELET COUNT, AUTOMATED 187 10^3/uL (150-450); WHITE BLOOD COUNT 6.8 10^3/uL (4.0-10.0)
[2023-12-31 08:34] LABS: ALBUMIN 3.5 G/DL (3.2-5.2); ALKALINE PHOSPHATASE 91 U/L (46-116); ALT/SGPT 15 U/L (7.0-40); AST/SGOT 20 U/L (<34); BLOOD UREA NITROGEN 19 MG/DL (9-23); CALCIUM LEVEL 8.9 MG/DL (8.3-10.6); CARBON DIOXIDE LEVEL 30 MMOL/L (20-31); CHLORIDE LEVEL 106 MMOL/L (98-107); CHOLESTEROL LEVEL 217 MG/DL (<200); CHOLESTEROL RISK RATIO 3.42 (<5); CREATININE FOR GFR 0.83 MG/DL (0.55-1.30); GLOMERULAR FILTRATION RATE > 60.0 (>32); GLUCOSE, FASTING 82 MG/DL (74-106); HDL CHOLESTEROL 63.4 MG/DL (>40); LDL CHOLESTEROL 143.2 MG/DL (<100); NON-HDL-C 153.6 MG/DL; POTASSIUM SERUM 3.4 MMOL/L (3.5-5.1); SODIUM LEVEL 140 MMOL/L (136-145); TOTAL PROTEIN 6.2 G/DL (5.7-8.2); TRIGLYCERIDES LEVEL 52 MG/DL (<150)
[2023-12-31 08:36] LABS: VITAMIN B12 LEVEL 468 PG/ML (211-911)
[2023-12-31 08:55] LABS: HEMOGLOBIN A1c 4.9 % (4.0-6.0)
== END ==
PROVIDERS: ATTEND Student in an Organized Health Care Education/Training Program
DX: I10 Essential (primary) hypertension (principal); E78.2 Mixed hyperlipidemia; E11.42 Type 2 diabetes mellitus with diabetic polyneuropathy; E55.9 Vitamin D deficiency, unspecified